=== PATIENT | female | born 1960 | race Caucasian/White ===

== ENCOUNTER 2017-07-18 11:43 | Inpatient (IN) | payer OTHER ==
[~2017-07-18] VITALS: Ht 162.6 cm; Wt 85.7 kg
[~2017-07-18 11:43] MED LIST: ABIL5TAB PO; ALBU0.086 INH; ALBU17I INH; ALBU8I INH; BENZ100 PO; CLON.5 PO; COZA50TA PO; CYMB60CA PO; FENT50DI TD; META800 PO; METF-324 PO; MYCO500T PO; NATE60TA2 PO; OMEP20TA PO; PRED20 PO; PREG100 PO; ROPI2TAB23 PO
[2017-07-18 12:00] VITALS: BP 177/83; PULSE 114; RESP 20; TEMP 98.8; O2SAT 97
[2017-07-18 12:43] LABS: AUTOMATED NEUTROPHIL # 5.1 TH/MM3 (1.8-7.7); BASOPHIL % 0.3 % (0.0-2.0); EOSINOPHIL # 0.1 TH/MM3 (0-0.4); EOSINOPHIL % 1.1 % (0.0-4.0); HEMATOCRIT 42.8 % (35.0-46.0); HEMO FLAGS DIFF FINAL; LYMPH % 16.3 % (9.0-44.0); LYMPHOCYTE # 1.2 TH/MM3 (1.0-4.8); MEAN CELL VOLUME 84.8 FL (80.0-100.0); MEAN CORPUSCULAR HEMOGLOBIN 28.8 PG (27.0-34.0); MONO % 12.4 % (0.0-8.0); NEUT % 69.9 % (16.0-70.0); PLATELET COUNT 175 TH/MM3 (150-450); RED BLOOD COUNT 5.04 MIL/MM3 (4.00-5.30); RED CELL DISTRIBUTION WIDTH 13.2 % (11.6-17.2); WHITE BLOOD COUNT 7.3 TH/MM3 (4.0-11.0)
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
[2017-07-18 13:02] LABS: ALT (GPT) 74 U/L (10-53); ANION GAP 8 MEQ/L (5-15); AST (GOT) 38 U/L (15-37); BLOOD UREA NITROGEN 5 MG/DL (7-18); CHLORIDE 104 MEQ/L (98-107); GLOMERULAR FILTRATION RATE 119 ML/MIN (>89); POTASSIUM 3.2 MEQ/L (3.5-5.1); SODIUM (NA) 139 MEQ/L (136-145)
[2017-07-18 13:04] LABS: ALKALINE PHOSPHATASE 175 U/L (45-117); TOTAL BILIRUBIN ADULT 1.2 MG/DL (0.2-1.0)
[2017-07-18 13:06] LABS: ALCOHOL LESS THAN 3 MG/DL (0-5)
[2017-07-18] MEDS ORDERED: IBUPROFEN 600 MG TAB PO ONE (13:45)
[2017-07-18] MEDS ORDERED: POTASSIUM CHLORIDE 20 MEQ CONTROLLED RELEASE TAB PO ONE (14:00)
[2017-07-18 14:03] LABS: BLOOD, URINE NEG (NEG); COMMENT (UR) CULT NOT INDICATED; CULTURE IF INDICATED CULT NOT INDICATED; GLUCOSE,URINE NEG (NEG); HYALINE CAST, URINE 1 /lpf (RARE); KETONE, URINE 40 mg/dL (NEG); MUCUS URINE FEW /lpf (OCC); NITRITE,URINE NEG (NEG); PH, URINE 6.5 (5.0-8.5); URINE COLOR YELLOW (YELLW/STRAW)
[2017-07-18 15:21] VITALS: BP 174/87
[2017-07-18 17:55] VITALS: BP 142/92; PULSE 95; RESP 18; O2SAT 95
[2017-07-18] MEDS ORDERED: OLANZapine IM 10 MG VIAL IM ONE (18:15)
[2017-07-18] MEDS ORDERED: diphenhydrAMINE HCL 50 MG/ML VIAL IM ONE (18:15)
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
[2017-07-18] MEDS ORDERED: ALUMINUM/MAGNESIUM/SIMETH 30 ML CUP PO PRN (20:00)
[2017-07-18] MEDS ORDERED: MAGNESIUM HYDROXIDE SUSP 30 ML CUP PO PRN (20:00)
[2017-07-18 21:42] VITALS: BP 153/79; PULSE 93; RESP 18; TEMP 98.1; O2SAT 98
[2017-07-19] MEDS: ACETAMINOPHEN 325 MG TAB PO PRN ×3 (02:30→14:08)
[2017-07-19 06:14] VITALS: BP 147/66; PULSE 107; RESP 20; TEMP 99.6; O2SAT 95
[2017-07-19] MEDS: GABAPENTIN 100 MG CAP PO SCH ×3 (08:51→17:59)
[2017-07-19] MEDS ORDERED: PNEUMOCOCCAL POLYVALENT INJ 25 MCG/0.5 ML SYR IM ONE (09:00)
[2017-07-19] MEDS ORDERED: INFLUENZA VIRUS VACCINE (QUADRIVALENT) 0.5 ML SYR IM ONE (09:00)
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
[2017-07-19] MEDS ORDERED: BENZTROPINE MESYLATE 2 MG/2 ML VIAL IM PRN (12:00)
[2017-07-19] MEDS ORDERED: LORazepam 2 MG/ML VIAL IM PRN (12:00)
[2017-07-19] MEDS ORDERED: BENZTROPINE MESYLATE 1 MG TAB PO PRN (12:00)
[2017-07-19] MEDS: ARIPiprazole 10 MG TAB PO SCH (13:14)
[2017-07-19] MEDS ORDERED: LYRI200C PO (14:19)
[2017-07-19] MEDS ORDERED: BENZ100 PO (14:19)
[2017-07-19] MEDS ORDERED: OMEP40CA2 PO (14:19)
[2017-07-19] MEDS ORDERED: VENTAER INH (14:19)
[2017-07-19] MEDS ORDERED: FLUT1INH INH (14:19)
[2017-07-19] MEDS ORDERED: DULO1CAP3 PO (14:19)
--- NOTE | 2017-07-19 14:19 | EKG ---
Date Performed: 07/19/2017 Time Performed: 07:46:54 PTAGE: 57 years EKG: Sinus rhythm POSSIBLE LEFT ATRIAL ENLARGEMENT MARKED LEFT AXIS DEVIATION POSSIBLE LEFT VENTRICULAR HYPERTROPHY Co mpared to the previous tracing QRS voltage slightly greater, otherwise no significant change ABNORMAL ECG PREVIOUS TRACING : 07/22/2016 18.25 DOCTOR: Johnny Hu Interpretating Date/Time 07/19/2017 14:17:33
[2017-07-19] MEDS: LORazepam 1 MG TAB PO PRN ×2 (14:42→23:33)
--- NOTE | 2017-07-19 16:03 | PD.CONS ---
HPI Service [facility] Hospitalists Consult Requested By Dr. Hansen Reason for Consult Medical management Primary Care Physician Tom Mckeon M.D. Diagnoses: History of Present Illness This is a 57-year-old female with history of COPD, type 2 diabetes, hypertension , rheumatoid arthritis, sleep apnea. Patient presented to the emergency room under voluntary for psychiatric evaluation. Per review of psychiatric notes, patient had been recently hospitalized at [facility] with diagnosis of schizoaffective disorder. Patient has prior history of PTSD and depression. Patient was admitted to the psychiatric unit. She is a poor historian, she has pressured speech and at times is difficult to focus. She has a history of diabetes and states that she takes metformin at sometimes; otherwise she controls her diabetes through diet. Does have a history of sleep apnea but doesn't use her CPAP. Laboratory workup was completed and she was noted with elevation in liver enzymes which she's had in the past. She indicates that liver disease runs in her family and she's had previous problems with her liver. She denies any illegal drug use, no alcohol abuse. RN has been trying to obtain an accurate medication list and has called the pharmacy without any success. Urine toxicology was positive for marijuana to which she admits. Laboratory workup currently spending for hepatitis panel as well as HIV. Hospitalist services are requested for medical management Review of Systems ROS Limitations: Clinical Condition, Psychotic Musculoskeletal: COMPLAINS OF: Joint pain Past Family Social History Past Medical History 1. 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 2. Depression. 3. Anxiety. 4. Suicide attempt 20 years ago. 5. Sleep apnea, uses a CPAP at night but has not used recently. 6. Irritable bowel syndrome. 7. Hypertension-not sure of meds 8. Elevated cholesterol, not taking any medications. 9. Morbid obesity. 10. GERD. 11. Previous kidney stones. 12. Diabetes-diet controlled, occ. takes Metformin 13. Fibromyalgia. 14. Chronic pain. 15. Previous admission in 2002 for septic shock and acute respiratory failure that required intubation and also had a large ischial rectal abscess. She did require a tracheostomy at that time. 16. EGD with dilatation 17. Elevated LFTs 18. OA Past Surgical History Hysterectomy Cholecystectomy EGD with dilatation Appendectomy. Tonsillectomy. Right foot fracture repair. Bilat knee replacements Right foot surgery Tracheostomy ERCP with sphincterotomy Reported Medications Reported Meds & Active Scripts Active Reported Duloxetine DR (Duloxetine HCl) 60 Mg Capdr 60 Mg PO DAILY Lyrica (Pregabalin) 200 Mg Cap 200 Mg PO BID Ventolin Hfa 18 GM Inh (Albuterol Sulfate) 90 Mcg/Act Aer 2 Puff INH Q4-6H PRN Omeprazole 40 Mg Cap 40 Mg PO DAILY Breo Ellipta Inh (Fluticasone/Vilanterol) 100-25 Mcg/Act Inh 1 Puff INH DAILY Use daily at the same time. Tessalon Perles (Benzonatate) 100 Mg Cap 200 Mg PO TID PRN Allergies: Coded Allergies: adhesive (Unverified Allergy, Severe, 07/18/17) codeine (Unverified Allergy, Severe, Hives, 07/18/17) RASH morphine (Unverified Allergy, Severe, Itching, 07/18/17) Penicillins (Verified Allergy, Unknown, 07/18/17) Active Ordered Medications Inpatient Medications Acetaminophen (Tylenol) 650 mg Q4H PRN PO Pain 1-5 or Temp >101F Last administered on 07/19/17 14:08; Start 07/18/17 at 20:00 Al Hydrox/Mg Hydrox/Simethicone (Mag-Al Plus Susp Liq) 30 ml Q6H PRN PO DYSPEPSIA; Start 07/18/17 at 20:00 Aripiprazole (Abilify) 10 mg DAILY PO Last administered on 07/19/17 13:14; Start 07/19/17 at 12:00 Benztropine Mesylate (Cogentin Inj) 1 mg Q12HR PRN IM EPS, unable to take PO; Start 07/19/17 at 12:00 Benztropine Mesylate (Cogentin) 1 mg Q12HR PRN PO EXTRA PYRAMIDAL SYMPTOMS; Start 07/19/17 at 12:00 Diphenhydramine HCl (Benadryl Inj) 50 mg ONCE ONCE IM Last administered on 18:15; Start 07/18/17 at 18:15; Stop 07/18/17 at 19:01; Status DC Gabapentin (Neurontin) 200 mg TID PO Last administered on 07/19/17 13:15; Start 07/19/17 at 09:00 Ibuprofen (Motrin) 600 mg ONCE ONCE PO Last administered on 07/18/17 14:06; Start 07/18/17 at 13:45; Stop 07/18/17 at 13:46; Status DC Influenza Virus Vaccine (Flu (Quadrivalent) Vaccine Inj) 0.5 ml ONCE ONCE IM ; Start 07/19/17 at 09:00; Stop 07/19/17 at 09:01; Status DC Lorazepam (Ativan Inj) 1 mg Q6H PRN IM ANXIETY, unable to take PO; Start at 12:00 Lorazepam (Ativan) 1 mg Q6H PRN PO ANXIETY Last administered on 07/19/17 14:42 ; Start 07/19/17 at 12:00 Magnesium Hydroxide (Milk Of Magnesia Liq) 30 ml DAILY PRN PO CONSTIPATION; Start 07/18/17 at 20:00 Olanzapine (ZyPREXA INJ) 10 mg ONCE ONCE IM Last administered on 07/18/17 18: 15; Start 07/18/17 at 18:15; Stop 07/18/17 at 19:02; Status DC Pneumococcal Polyvalent Vaccine (Pneumovax-23 Inj) 25 mcg ONCE ONCE IM ; Start 07/19/17 at 09:00; Stop 07/19/17 at 09:01; Status DC Potassium Chloride (KCl) 20 meq ONCE ONCE PO Last administered on 07/18/17 14 :06; Start 07/18/17 at 14:00; Stop 07/18/17 at 14:01; Status DC Zolpidem Tartrate (Ambien) 5 mg HS PRN PO INSOMNIA; Start 07/19/17 at 12:00 Family History Reviewed, + cancer Social History , lives alone. Has grown children. Occ. smoke marihuana, no ETOH, no smoking Physical Exam Vital Signs Vital Signs Date Time Temp Pulse Resp B/P (MAP) Pulse Ox O2 Delivery O2 Flow Rate FiO2 07/19/17 06:14 99.6 107 20 147/66 (93) 95 07/18/17 21:42 98.1 93 18 153/79 (103) 98 07/18/17 17:55 95 18 142/92 (109) 95 Room Air Physical Exam GENERAL: This is a well-nourished, well-developed patient, in no apparent distress. SKIN: No rashes, ecchymoses or lesions. Cool and dry. HEAD: Atraumatic. Normocephalic. No temporal or scalp tenderness. EYES: Pupils equal round and reactive. Extraocular motions intact. No scleral icterus. No injection or drainage. ENT: Nose without bleeding, purulent drainage or septal hematoma. Throat without erythema, tonsillar hypertrophy or exudate. Uvula midline. Airway patent. NECK: Trachea midline. No JVD or lymphadenopathy. Supple, nontender, no meningeal signs. CARDIOVASCULAR: Regular rate and rhythm without murmurs, gallops, or rubs. RESPIRATORY: Clear to auscultation. Breath sounds equal bilaterally. No wheezes , rales, or rhonchi. GASTROINTESTINAL: Abdomen soft, non-tender, nondistended. No hepato-splenomegaly , or palpable masses. No guarding. MUSCULOSKELETAL: Extremities without clubbing, cyanosis, or edema. No joint tenderness, effusion, or edema noted. No calf tenderness. Negative Homans sign bilaterally. NEUROLOGICAL: Awake, alert oriented 3. Speech is fast, at times difficult to focus on details of past medical history. No focal deficits. Laboratory Laboratory Tests Test 07/19/17 15:35 Result Diagram: 07/18/17 1230 07/18/17 1230 A/P Diagnosis: (1) Schizoaffective disorder ICD Codes: F25.9 - Schizoaffective disorder, unspecified Status: Acute (2) Cannabis abuse ICD Codes: F12.10 - Cannabis abuse, uncomplicated Status: Chronic (3) Transaminitis ICD Codes: R74.0 - Nonspecific elevation of levels of transaminase and lactic acid dehydrogenase [LDH] Status: Acute (4) Diabetes 1.5, managed as type 2 ICD Codes: E10.9 - Type 1 diabetes mellitus without complications Status: Chronic (5) HTN (hypertension) ICD Codes: I10 - Essential (primary) hypertension Status: Chronic (6) Sleep apnea ICD Codes: G47.30 - Sleep apnea, unspecified Status: Chronic (7) COPD (chronic obstructive pulmonary disease) ICD Codes: J44.9 - Chronic obstructive pulmonary disease, unspecified Status: Chronic (8) Tobacco abuse ICD Codes: Z72.0 - Tobacco use Status: Chronic Assessment and Plan Thank you for this consultation, we will assist with medical management 57-year-old female with history of schizoaffective disorder, presented to emergency room under voluntary for psychiatric evaluation. Schizoaffective disorder with psychosis History of PTSD -Continue with psychiatric care Elevated liver enzymes -DC Tylenol -Repeat LFTs in the morning -Hepatitis panel and HIV currently pending -If LFTs remain elevated, she will need evaluation by gastroenterology Type 2 diabetes, occasionally takes metformin. Mainly diet controlled -Accu-Cheks before meals and at bedtime with insulin therapy -Hemoglobin A1c in the morning Hypertension, patient is not sure about medications takes -Add clonidine when necessary COPD Tobacco abuse -Counseling completed -Nicotine patch has been ordered -Continue Breo-Ellipta Home medications reviewed, some initiated as indicated Plan of care has been discussed with the patient, attending and registered nurse. Further management of the patient will be dependent on the hospital course This patient was seen by myself and Dr. Adam, this consultation is written on his behalf Problem Qualifiers (1) Schizoaffective disorder: Qualified Codes: F25.9 - Schizoaffective disorder, unspecified (2) HTN (hypertension): Qualified Codes: I10 - Essential (primary) hypertension (3) Sleep apnea: Qualified Codes: G47.30 - Sleep apnea, unspecified (4) COPD (chronic obstructive pulmonary disease): Qualified Codes: J44.9 - Chronic obstructive pulmonary disease, unspecified Becca Morton Jul 19, 2017 16:03
[2017-07-19] MEDS ORDERED: DEXTROSE 50% IN WATER 50 ML VIAL(D50) IV PRN (16:30)
[2017-07-19] MEDS ORDERED: GLUCAGON 1 MG/ML VIAL OTHER PRN (16:30)
[2017-07-19] MEDS ORDERED: cloNIDine HCL 0.1 MG TAB PO PRN (16:30)
[2017-07-19] MEDS: INSULIN ASPART SUPPLEMENTAL SCALE SQ SCH ×2 (17:00→20:40)
[2017-07-19] MEDS: NICOTINE 7 MG/24 HR PATCH T-DERMAL SCH (18:00)
[2017-07-19 18:18] VITALS: BP 126/74; PULSE 91; RESP 18; TEMP 98.5; O2SAT 99
[2017-07-19] MEDS: ZOLPIDEM TARTRATE 5 MG TAB PO PRN ×2 (20:47→20:48)
[2017-07-19 22:06] LABS: BICARBONATE 24.1 MEQ/L (21.0-32.0); POTASSIUM 3.9 MEQ/L (3.5-5.1)
[2017-07-19 22:10] LABS: TOTAL BILIRUBIN ADULT 0.9 MG/DL (0.2-1.0)
[2017-07-19 22:12] LABS: INDIRECT BILIRUBIN 0.5 MG/DL (0.0-0.8)
[2017-07-20] MEDS: LORazepam 1 MG TAB PO PRN ×3 (04:44→21:08)
[2017-07-20 05:30] VITALS: BP 118/63; PULSE 110; RESP 16; TEMP 102.3; O2SAT 94
[2017-07-20] MEDS: INSULIN ASPART SUPPLEMENTAL SCALE SQ SCH ×4 (08:00→21:00)
[2017-07-20] MEDS: REMOVE OLD PATCH T-DERMAL SCH (08:44)
[2017-07-20] MEDS: PANTOPRAZOLE SOD 40 MG DELAYED RELEASE TAB PO SCH (08:44)
[2017-07-20] MEDS: GABAPENTIN 100 MG CAP PO SCH ×3 (08:44→17:38)
[2017-07-20] MEDS: ARIPiprazole 10 MG TAB PO SCH (08:44)
[2017-07-20] MEDS: NICOTINE 7 MG/24 HR PATCH T-DERMAL SCH (08:44)
[2017-07-20] MEDS: FLUTICASONE 100 MCG/VILANTEROL 25 MCG INHALER INH SCH ×2 (09:00→13:05)
--- NOTE | 2017-07-20 10:00 | RADRPT ---
EXAM DATE/TIME: 07/20/2017 09:40 [place] COMPARISON: No previous studies available for comparison. INDICATIONS : Altered mental status. RADIATION DOSE: 56.35 CTDIvol (mGy) MEDICAL HISTORY : Lupus. SURGICAL HISTORY : Hysterectomy. ENCOUNTER: Initial ACUITY: 1 day PAIN SCALE: 0/10 LOCATION: cranial TECHNIQUE: Multiple contiguous axial images were obtained of the head. Using automated exposure control and adj ustment of the mA and/or kV according to patient size, radiation dose was kept as low as reasonably a chievable to obtain optimal diagnostic quality images. DICOM format image data is available electro nically for review and comparison. FINDINGS: CEREBRUM: The ventricles are normal for age. No evidence of midline shift, mass lesion, hemorrhage or acute in farction. No extra-axial fluid collections are seen. POSTERIOR FOSSA: The cerebellum and brainstem are intact. The 4th ventricle is midline. The cerebellopontine angle i s unremarkable. EXTRACRANIAL: The visualized portion of the orbits is intact. SKULL: The calvaria is intact. No evidence of skull fracture. CONCLUSION: 1. No acute intracranial abnormality. Manoj Armas MD on July 20, 2017 at 9:56 Board Certified Radiologist. This report was verified electronically.
[2017-07-20 13:15] LABS: ALT (GPT) 42 U/L (10-53); AST (GOT) 28 U/L (15-37)
[2017-07-20 13:17] LABS: ALKALINE PHOSPHATASE 176 U/L (45-117); INDIRECT BILIRUBIN 0.4 MG/DL (0.0-0.8); TOTAL BILIRUBIN ADULT 0.9 MG/DL (0.2-1.0)
[2017-07-20 13:40] LABS: HEMOGLOBIN A1a 1.1 %; HEMOGLOBIN A1b 0.7 %; HEMOGLOBIN Ao 85.4 %; HEMOGLOBIN F 1.2 %; HEMOGLOBIN LA1C 2.1 %; HEMOGLOBIN P3 3.5 %
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
[2017-07-20] MEDS ORDERED: ONDANSETRON ODT 4 MG TAB PO PRN (15:45)
[2017-07-20 16:15] VITALS: BP_SYST 69; PULSE 105; RESP 17; TEMP 100.2; O2SAT 96
--- NOTE | 2017-07-20 16:50 | HHI.PR ---
Subjective Remarks Patient examined in the presence of RN Complaining of rash to perineal area No urinary symptoms Had a fever in the morning on a 102.3, slightly tachycardic. Has dry cough No chest pain No shortness of breath Complains of generalized joint pain, history of fibromyalgia Objective Objective Results - Vital Signs Date Time Temp Pulse Resp B/P (MAP) Pulse Ox O2 Delivery O2 Flow Rate FiO2 07/20/17 16:15 100.2 105 17 69/ 96 07/20/17 05:30 102.3 110 16 118/63 (81) 94 07/19/17 18:18 98.5 91 18 126/74 (91) 99 Result Diagram: 07/18/17 1230 07/19/17 1535 Other Results Laboratory Tests Test 07/20/17 12:21 Hemoglobin A1c 5.5 Total Bilirubin 0.9 Direct Bilirubin 0.5 Indirect Bilirubin 0.4 Aspartate Amino Transf (AST/SGOT) 28 Alanine Aminotransferase (ALT/SGPT) 42 Alkaline Phosphatase 176 Total Protein 6.9 Albumin 3.0 ROS General: Other (fever) Neuro/MS: Other (joint pain) Psych: Anxiety Skin: Rash (perineal rash) Physical Exam Physical Exam GENERAL: This is a well-nourished, well-developed patient, in no apparent distress. SKIN: No rashes, ecchymoses or lesions. Cool and dry. HEAD: Atraumatic. Normocephalic. No temporal or scalp tenderness. EYES: Pupils equal round and reactive. Extraocular motions intact. No scleral icterus. No injection or drainage. ENT: Nose without bleeding, purulent drainage or septal hematoma. Throat without erythema, tonsillar hypertrophy or exudate. Uvula midline. Airway patent. NECK: Trachea midline. No JVD or lymphadenopathy. Supple, nontender, no meningeal signs. CARDIOVASCULAR: Regular rate and rhythm without murmurs, gallops, or rubs. RESPIRATORY: Clear to auscultation. Breath sounds equal bilaterally. No wheezes , rales, or rhonchi. GASTROINTESTINAL: Abdomen soft, non-tender, nondistended. No hepato-splenomegaly , or palpable masses. No guarding. : Erythematous fungal rash noted to perineum, no vaginal discharge MUSCULOSKELETAL: Extremities without clubbing, cyanosis, or edema. No joint tenderness, effusion, or edema noted. No calf tenderness. Negative Homans sign bilaterally. NEUROLOGICAL: Awake, alert oriented 3. Speech is fast, at times difficult to focus on details of past medical history. No focal deficits. Urinary Catheter: No Vascular Central Line Catheter: No A/P Diagnosis: (1) Schizoaffective disorder ICD Codes: F25.9 - Schizoaffective disorder, unspecified Status: Acute (2) Cannabis abuse ICD Codes: F12.10 - Cannabis abuse, uncomplicated Status: Chronic (3) Transaminitis ICD Codes: R74.0 - Nonspecific elevation of levels of transaminase and lactic acid dehydrogenase [LDH] Status: Acute (4) Diabetes 1.5, managed as type 2 ICD Codes: E10.9 - Type 1 diabetes mellitus without complications Status: Chronic (5) HTN (hypertension) ICD Codes: I10 - Essential (primary) hypertension Status: Chronic (6) Sleep apnea ICD Codes: G47.30 - Sleep apnea, unspecified Status: Chronic (7) COPD (chronic obstructive pulmonary disease) ICD Codes: J44.9 - Chronic obstructive pulmonary disease, unspecified Status: Chronic (8) Tobacco abuse ICD Codes: Z72.0 - Tobacco use Status: Chronic (9) Rash ICD Codes: R21 - Rash and other nonspecific skin eruption Status: Acute (10) Bipolar affective, manic, severe w/ psych ICD Codes: F31.2 - Bipolar disorder, current episode manic severe with psychotic features Status: Acute Assessment and Plan 57-year-old female with history of schizoaffective disorder, presented to emergency room under voluntary for psychiatric evaluation. Schizoaffective disorder with psychosis History of PTSD -Continue with psychiatric care Elevated liver enzymes -LFTs back to normal -Negative HIV test -Resume Tylenol Type 2 diabetes, occasionally takes metformin. Mainly diet controlled -Accu-Cheks before meals and at bedtime with insulin therapy -Hemoglobin A1c 5.5 -Blood glucose well controlled, change Accu-Cheks to twice a day Hypertension, patient is not sure about medications takes -Continue clonidine when necessary COPD Tobacco abuse -Counseling completed -Nicotine patch has been ordered -Continue Breo-Ellipta Febrile, tachycardia, etiology unclear. Complains of a dry cough -If fever recurs, we'll check blood cultures, chest x-ray and repeat UA Perineal rash -Nystatin ointment continue to monitor Discussed with RN Discussed with patient Discussed with Dr. Coppola This patient was seen by myself and Dr. Coppola, this note is written on his behalf Problem Qualifiers (1) Schizoaffective disorder: Qualified Codes: F25.9 - Schizoaffective disorder, unspecified (2) HTN (hypertension): Qualified Codes: I10 - Essential (primary) hypertension (3) Sleep apnea: Qualified Codes: G47.30 - Sleep apnea, unspecified (4) COPD (chronic obstructive pulmonary disease): Qualified Codes: J44.9 - Chronic obstructive pulmonary disease, unspecified Becca Morton Jul 20, 2017 16:50
[2017-07-20] MEDS: IBUPROFEN 600 MG TAB PO PRN ×2 (18:28→20:57)
--- NOTE | 2017-07-20 20:23 | RADRPT ---
EXAM DATE/TIME: 07/20/2017 20:05 [facility] COMPARISON: CHEST SINGLE AP, July 22, 2016, 18:47. INDICATIONS : Cough. MEDICAL HISTORY : Lupus. SURGICAL HISTORY : Hysterectomy. ENCOUNTER: Initial ACUITY: 1 week PAIN SCORE: 3/10 LOCATION: Bilateral upper chest FINDINGS: A single view of the chest demonstrates the lungs to be symmetrically aerated without evidence of mas s, infiltrate or effusion. The cardiomediastinal contours are unremarkable. Osseous structures are intact. Subcentimeter benign granuloma again seen left lung base. CONCLUSION: No evidence of acute cardiopulmonary disease. Miguel Clayton MD on July 20, 2017 at 20:21 Board Certified Radiologist. This report was verified electronically.
[2017-07-20] MEDS: NYSTATIN 100,000 UNIT/GM CREAM 15 GM TOPICAL SCH (21:00)
[2017-07-20] MEDS: ZOLPIDEM TARTRATE 5 MG TAB PO PRN (21:08)
[2017-07-21 05:36] VITALS: BP 133/78; PULSE 95; RESP 18; TEMP 97.8; O2SAT 99
[2017-07-21] MEDS: INSULIN ASPART SUPPLEMENTAL SCALE SQ SCH ×4 (08:29→21:00)
[2017-07-21] MEDS: ARIPiprazole 15 MG TAB PO SCH (09:00)
[2017-07-21] MEDS: REMOVE OLD PATCH T-DERMAL SCH (09:00)
[2017-07-21] MEDS: NYSTATIN 100,000 UNIT/GM CREAM 15 GM TOPICAL SCH ×2 (09:00→22:00)
[2017-07-21] MEDS ORDERED: ARIPiprazole 10 MG TAB PO SCH (09:00)
[2017-07-21] MEDS: GABAPENTIN 100 MG CAP PO SCH ×3 (09:21→17:53)
[2017-07-21] MEDS: PANTOPRAZOLE SOD 40 MG DELAYED RELEASE TAB PO SCH (09:21)
[2017-07-21] MEDS: NICOTINE 7 MG/24 HR PATCH T-DERMAL SCH (09:21)
[2017-07-21] MEDS: IBUPROFEN 600 MG TAB PO PRN (09:24)
[2017-07-21] MEDS: LORazepam 1 MG TAB PO PRN ×2 (10:40→16:43)
[2017-07-21 14:20] LABS: FREE T4 1.62 NG/DL (0.76-1.46)
--- NOTE | 2017-07-21 15:29 | HHI.PR ---
Subjective Remarks Patient examined in the presence of RN Everything is wrong as the patient No urinary symptoms No nausea vomiting or diarrhea. Has dry cough No chest pain No shortness of breath as per patient she has history of throat cancer as well as thyroid cancer. It is cured by natural medication. Complains of generalized joint pain, history of fibromyalgia No fever today Objective Objective Results - Vital Signs Date Time Temp Pulse Resp B/P (MAP) Pulse Ox O2 Delivery O2 Flow Rate FiO2 07/21/17 05:36 97.8 95 18 133/78 (96) 99 07/20/17 16:15 100.2 105 17 69/ 96 Result Diagram: 07/18/17 1230 07/19/17 1535 Other Results Laboratory Tests Test 07/21/17 13:11 Free Thyroxine 1.62 Thyroid Stimulating Hormone 3rd Gen 0.223 Date/Time Source Procedure Growth Status 07/20/17 23:36 Blood Peripheral Aerobic Blood Culture - Preliminary NO GROWTH IN 1 DAY Resulted 07/20/17 23:36 Blood Peripheral Anaerobic Blood Culture - Preliminary NO GROWTH IN 1 DAY Resulted Physical Exam Physical Exam GENERAL: This is a well-nourished, well-developed patient, in no apparent distress. SKIN: No rashes, ecchymoses or lesions. Cool and dry. HEAD: Atraumatic. Normocephalic. No temporal or scalp tenderness. EYES: Pupils equal round and reactive. Extraocular motions intact. No scleral icterus. No injection or drainage. ENT: Nose without bleeding, purulent drainage or septal hematoma. Throat without erythema, tonsillar hypertrophy or exudate. Uvula midline. Airway patent. NECK: Trachea midline. No JVD or lymphadenopathy. Supple, nontender, no meningeal signs. CARDIOVASCULAR: Regular rate and rhythm without murmurs, gallops, or rubs. RESPIRATORY: Clear to auscultation. Breath sounds equal bilaterally. No wheezes , rales, or rhonchi. GASTROINTESTINAL: Abdomen soft, non-tender, nondistended. No hepato-splenomegaly , or palpable masses. No guarding. MUSCULOSKELETAL: Extremities without clubbing, cyanosis, or edema. No joint tenderness, effusion, or edema noted. No calf tenderness. Negative Homans sign bilaterally. NEUROLOGICAL: Awake, alert oriented 3. Speech is fast, at times difficult to focus on details of past medical history, has tangential thoughts. No focal deficits. Urinary Catheter: No Vascular Central Line Catheter: No A/P Assessment and Plan (1) Schizoaffective disorder ICD Codes: F25.9 - Schizoaffective disorder, unspecified Status: Acute (2) Cannabis abuse ICD Codes: F12.10 - Cannabis abuse, uncomplicated Status: Chronic (3) Transaminitis ICD Codes: R74.0 - Nonspecific elevation of levels of transaminase and lactic acid dehydrogenase [LDH] Status: Acute (4) Diabetes 1.5, managed as type 2 ICD Codes: E10.9 - Type 1 diabetes mellitus without complications Status: Chronic (5) HTN (hypertension) ICD Codes: I10 - Essential (primary) hypertension Status: Chronic (6) Sleep apnea ICD Codes: G47.30 - Sleep apnea, unspecified Status: Chronic (7) COPD (chronic obstructive pulmonary disease) ICD Codes: J44.9 - Chronic obstructive pulmonary disease, unspecified Status: Chronic (8) Tobacco abuse ICD Codes: Z72.0 - Tobacco use Status: Chronic (9) Rash ICD Codes: R21 - Rash and other nonspecific skin eruption Status: Acute (10) Bipolar affective, manic, severe w/ psych ICD Codes: F31.2 - Bipolar disorder, current episode manic severe with psychotic features Status: Acute Plan 57-year-old female with history of schizoaffective disorder, presented to emergency room under voluntary for psychiatric evaluation. Schizoaffective disorder with psychosis History of PTSD -Continue with psychiatric care Elevated liver enzymes -LFTs back to normal -Negative HIV test -Resume Tylenol Increase free T4 and decreased TSH -We will get free T4 level. -Start low-dose beta john Type 2 diabetes, occasionally takes metformin. Mainly diet controlled -Accu-Cheks before meals and at bedtime with insulin therapy -Hemoglobin A1c 5.5 -Blood glucose well controlled, change Accu-Cheks to twice a day Hypertension, patient is not sure about medications takes -Continue clonidine when necessary COPD Tobacco abuse -Counseling completed -Nicotine patch has been ordered -Continue Breo-Ellipta Febrile, tachycardia, etiology unclear. Complains of a dry cough. No more cough or fever -If fever recurs, we'll check blood cultures, chest x-ray and repeat UA Perineal rash -Nystatin ointment continue to monitor Discussed with RN Discussed with patient Lisa Adam MD Jul 21, 2017 15:29
[2017-07-21 17:42] VITALS: BP 141/64; PULSE 107; RESP 18; TEMP 100.5; O2SAT 98
[2017-07-21] MEDS: ACETAMINOPHEN 325 MG TAB PO PRN (17:54)
--- NOTE | 2017-07-21 19:20 | HHI.PYPN ---
Subjective Remarks Patient was seen and case discussed with nursing. Patient is followed by the medical team and lab work was ordered today. Today patient remains focused on somatic complaints. She has poor insight concerning her history and her various bizarre delusions. Delusions include being a witness for the [employer], knowing the locations of cocaine safehouses, and islam preoccupation. Blood pressure and heart rate is within normal limits, there is no EPS or stiffness or acute change in mental status Objective Alert: Yes [place]: Person, Place (at least) Mood: Calm Affect: Restricted Memory Intact: Comment (not formally assessed) Hallucinations: Other (no AVH) Delusions: Yes Delusion Type: Paranoid (that she knows the safehouses and is working with [employer]) , Other (regarding radiation, with some islam overtones) Suicidal: Ideation (no SI) Homicidal: Ideation (no HI) Insight/Judgment Poor Labs Test 07/21/17 13:11 Free Thyroxine 1.62 NG/DL Thyroid Stimulating Hormone 3rd Gen 0.223 uIU/ML Date/Time Source Procedure Growth Status 07/20/17 23:36 Blood Peripheral Aerobic Blood Culture - Preliminary NO GROWTH IN 1 DAY Resulted 07/20/17 23:36 Blood Peripheral Anaerobic Blood Culture - Preliminary NO GROWTH IN 1 DAY Resulted Vitals/IOs Vital Signs Date Time Temp Pulse Resp B/P (MAP) Pulse Ox O2 Delivery O2 Flow Rate FiO2 07/21/17 17:42 100.5 107 18 141/64 (89) 98 07/18/17 17:55 Room Air Assessment & Plan Problem List: (1) Bipolar affective, manic, severe w/ psych ICD Codes: F31.2 - Bipolar disorder, current episode manic severe with psychotic features Status: Acute Assessment & Plan Add CK to labwork Justification for Cont. Inpt. Patient would decompensate in a less restrictive setting Request HC Surrog/Guard Advoc?: No Corona Whatley DO Jul 21, 2017 19:20
[2017-07-21] MEDS: METOPROLOL TARTRATE 25 MG TAB PO SCH (20:15)
[2017-07-22 05:28] VITALS: BP 122/71; PULSE 88; RESP 16; TEMP 99.1; O2SAT 98
[2017-07-22] MEDS: ACETAMINOPHEN 325 MG TAB PO PRN ×2 (06:44→23:15)
[2017-07-22] MEDS: LORazepam 1 MG TAB PO PRN ×3 (06:49→22:04)
[2017-07-22 07:57] LABS: MEAN CELL VOLUME 85.1 FL (80.0-100.0); MEAN CORPUSCULAR HEMOGLOBIN 29.1 PG (27.0-34.0); MEAN CORPUSCULAR HGB CONC 34.2 % (32.0-36.0); PLATELET COUNT 262 TH/MM3 (150-450); RED BLOOD COUNT 4.35 MIL/MM3 (4.00-5.30); RED CELL DISTRIBUTION WIDTH 13.5 % (11.6-17.2); REVIEW FLAG FINAL; WHITE BLOOD COUNT 8.7 TH/MM3 (4.0-11.0)
[2017-07-22] MEDS: INSULIN ASPART SUPPLEMENTAL SCALE SQ SCH ×4 (08:00→20:40)
[2017-07-22 08:17] LABS: BICARBONATE 28.2 MEQ/L (21.0-32.0); POTASSIUM 3.8 MEQ/L (3.5-5.1)
[2017-07-22 08:27] LABS: FREE T3 2.53 PG/ML (2.18-3.98)
[2017-07-22] MEDS: NICOTINE 7 MG/24 HR PATCH T-DERMAL SCH ×2 (09:00→11:00)
[2017-07-22] MEDS: REMOVE OLD PATCH T-DERMAL SCH (09:00)
[2017-07-22] MEDS: ARIPiprazole 15 MG TAB PO SCH (09:43)
[2017-07-22] MEDS: METOPROLOL TARTRATE 25 MG TAB PO SCH ×2 (09:44→20:37)
[2017-07-22] MEDS: FLUTICASONE 100 MCG/VILANTEROL 25 MCG INHALER INH SCH (09:44)
[2017-07-22] MEDS: PANTOPRAZOLE SOD 40 MG DELAYED RELEASE TAB PO SCH (09:45)
[2017-07-22] MEDS: GABAPENTIN 100 MG CAP PO SCH ×3 (09:45→18:26)
[2017-07-22] MEDS: NYSTATIN 100,000 UNIT/GM CREAM 15 GM TOPICAL SCH ×2 (09:47→21:00)
[2017-07-22] MEDS: IBUPROFEN 600 MG TAB PO PRN ×2 (12:35→20:40)
[2017-07-22 14:55] VITALS: BP 138/82; PULSE 92; RESP 18; TEMP 98.5; O2SAT 98
[2017-07-22 16:00] VITALS: BP 149/89; PULSE 88; RESP 18; TEMP 98.9
--- NOTE | 2017-07-22 17:49 | HHI.PYPN ---
Subjective Remarks Patient was seen and case discussed with nursing. Per nursing patient had a fall where she slipped on her slipper. She caught herself on her wrists and her knees. Patient is complaining of mild knee and wrist pain and is asking for x-rays. She has a documented history of somatic preoccupation. Patient remains very bizarre and psychotic. Today patient says her youngest daughter works at night to gather souls to control her granddaughter's. She also says she was supposed to be granted an honorary degree from [employer] to help educate her son. Mood is bright and cheerful. She denies suicidal or homicidal ideation intent or plan. Compliant with medications and tolerating them well Objective Alert: Yes [place]: Person, Place (at least) Mood: Calm Affect: Other (elevated) Memory Intact: Comment (not formally assessed) Hallucinations: Other (denies) Delusions: Yes Delusion Type: Grandiose (that she has an honorary degree from [employer]), Paranoid ( that her daughter collects souls) Suicidal: Ideation (no SI) Homicidal: Ideation (no HI) Insight/Judgment Poor Labs Test 07/22/17 07:26 White Blood Count 8.7 TH/MM3 Red Blood Count 4.35 MIL/MM3 Hemoglobin 12.7 GM/DL Hematocrit 37.0 % Mean Corpuscular Volume 85.1 FL Mean Corpuscular Hemoglobin 29.1 PG Mean Corpuscular Hemoglobin Concent 34.2 % Red Cell Distribution Width 13.5 % Platelet Count 262 TH/MM3 Mean Platelet Volume 7.3 FL Blood Urea Nitrogen 9 MG/DL Creatinine 0.52 MG/DL Random Glucose 95 MG/DL Calcium Level 9.1 MG/DL Sodium Level 134 MEQ/L Potassium Level 3.8 MEQ/L Chloride Level 99 MEQ/L Carbon Dioxide Level 28.2 MEQ/L Anion Gap 7 MEQ/L Estimat Glomerular Filtration Rate 122 ML/MIN Free Triiodothyronine (T3) pg/dL 2.53 PG/ML Date/Time Source Procedure Growth Status 07/20/17 23:36 Blood Peripheral Aerobic Blood Culture - Preliminary NO GROWTH IN 2 DAYS Resulted 07/20/17 23:36 Blood Peripheral Anaerobic Blood Culture - Preliminary NO GROWTH IN 2 DAYS Resulted Vitals/IOs Vital Signs Date Time Temp Pulse Resp B/P (MAP) Pulse Ox O2 Delivery O2 Flow Rate FiO2 07/22/17 16:00 98.9 88 18 149/89 (109) 07/22/17 14:55 98 07/18/17 17:55 Room Air Assessment & Plan Problem List: (1) Bipolar affective, manic, severe w/ psych ICD Codes: F31.2 - Bipolar disorder, current episode manic severe with psychotic features Status: Acute Assessment & Plan X-rays of knee and wrist ordered as a precaution. Increase Abilify to 25 mg daily. Give 10 mg dose today in addition to the 15 she already got Justification for Cont. Inpt. Patient will decompensate in a less restrictive setting Request HC Surrog/Guard Advoc?: No Corona Whatley DO Jul 22, 2017 17:49
[2017-07-22] MEDS ORDERED: ARIPiprazole 10 MG TAB PO ONE (19:00)
[2017-07-22 19:30] VITALS: BP 141/76; PULSE 95; RESP 16; TEMP 99; O2SAT 95
--- NOTE | 2017-07-22 21:22 | RADRPT ---
EXAM DATE/TIME: 07/22/2017 21:02 [facility] COMPARISON: No previous studies available for comparison. INDICATIONS : Right wrist pain, fell MEDICAL HISTORY : Lupus. SURGICAL HISTORY : Hysterectomy. Bilateral knee replacements ENCOUNTER: Initial ACUITY: 1 day PAIN SCORE: 6/10 LOCATION: Right Wrist FINDINGS: Three view examination of the right wrist demonstrates no soft tissue swelling, dislocation, or fract ure. The carpal bones are in normal alignment. The joint spaces are maintained. Bony mineralizatio n is normal. CONCLUSION: No acute fracture or subluxation of the right wrist. Miguel Clayton MD on July 22, 2017 at 21:21 Board Certified Radiologist. This report was verified electronically.
--- NOTE | 2017-07-22 21:23 | RADRPT ---
EXAM DATE/TIME: 07/22/2017 21:03 [facility] COMPARISON: No previous studies available for comparison. INDICATIONS : Left wrist pain, fell MEDICAL HISTORY : Lupus. SURGICAL HISTORY : Hysterectomy. Bilateral knee replacements ENCOUNTER: Initial ACUITY: 1 day PAIN SCORE: 10/10 LOCATION: Left Wrist FINDINGS: Three view examination of the left wrist demonstrates no soft tissue swelling, dislocation, or fractu re. The carpal bones are in normal alignment. The joint spaces are maintained. Bony mineralization is normal. CONCLUSION: Intact left wrist. Miguel Clayton MD on July 22, 2017 at 21:21 Board Certified Radiologist. This report was verified electronically.
--- NOTE | 2017-07-22 21:29 | RADRPT ---
EXAM DATE/TIME: 07/22/2017 21:06 [facility] COMPARISON: No previous studies available for comparison. INDICATIONS : Left knee pain, fell MEDICAL HISTORY : Lupus. SURGICAL HISTORY : Hysterectomy. Bilateral knee replacements ENCOUNTER: Initial ACUITY: 1 day PAIN SCORE: 2/10 LOCATION: Left Knee FINDINGS: No fracture or subluxation seen of the left knee. No joint effusion demonstrated. Mild prepatellar so ft tissue swelling. No radiopaque foreign body. Patient has a left total knee arthroplasty that appears intact and normally aligned. CONCLUSION: Mild prepatellar soft tissue swelling. No fracture, subluxation or significant joint effusion of the left knee. Previous arthroplasty. Miguel Clayton MD on July 22, 2017 at 21:27 Board Certified Radiologist. This report was verified electronically.
--- NOTE | 2017-07-22 21:30 | RADRPT ---
EXAM DATE/TIME: 07/22/2017 21:07 [facility] COMPARISON: No previous studies available for comparison. INDICATIONS : Right knee pain, fell MEDICAL HISTORY : Lupus. SURGICAL HISTORY : Hysterectomy. Bilateral knee replacements ENCOUNTER: Initial ACUITY: 1 day PAIN SCORE: 2/10 LOCATION: Right Knee FINDINGS: There is mild prepatellar soft tissue swelling. No radiopaque foreign body. No joint effusion. No fracture or subluxation of the right knee. There is a right total knee arthroplasty that appears i ntact and normally aligned. CONCLUSION: Intact right knee. Mild prepatellar soft tissue swelling. No joint effusion. Miguel Clayton MD on July 22, 2017 at 21:28 Board Certified Radiologist. This report was verified electronically.
[2017-07-22 23:29] LABS: BLOOD, URINE NEG (NEG); GLUCOSE,URINE NEG (NEG); KETONE, URINE NEG (NEG); NITRITE,URINE NEG (NEG); SQUAMOUS EPITHELIAL CELL URINE 1 /hpf (0-5); URINE COLOR YELLOW (YELLW/STRAW)
[2017-07-22 23:35] LABS: COMMENT (UR) CULT NOT INDICATED; CULTURE IF INDICATED CULT NOT INDICATED
[2017-07-22 23:52] VITALS: BP 114/66; PULSE 80; RESP 18; TEMP 98; O2SAT 96
[2017-07-23] MEDS: IBUPROFEN 600 MG TAB PO PRN ×3 (05:31→16:34)
[2017-07-23 05:56] VITALS: BP 135/78; PULSE 90; RESP 18; TEMP 97.3; O2SAT 98
[2017-07-23] MEDS: INSULIN ASPART SUPPLEMENTAL SCALE SQ SCH ×4 (08:00→21:00)
[2017-07-23] MEDS: METOPROLOL TARTRATE 25 MG TAB PO SCH ×2 (08:32→21:00)
[2017-07-23] MEDS: NICOTINE 7 MG/24 HR PATCH T-DERMAL SCH (08:32)
[2017-07-23] MEDS: GABAPENTIN 100 MG CAP PO SCH ×3 (08:33→17:34)
[2017-07-23] MEDS: PANTOPRAZOLE SOD 40 MG DELAYED RELEASE TAB PO SCH (08:33)
[2017-07-23] MEDS: REMOVE OLD PATCH T-DERMAL SCH (08:34)
[2017-07-23] MEDS: FLUTICASONE 100 MCG/VILANTEROL 25 MCG INHALER INH SCH (08:34)
[2017-07-23] MEDS: NYSTATIN 100,000 UNIT/GM CREAM 15 GM TOPICAL SCH ×2 (08:34→21:00)
--- NOTE | 2017-07-23 08:36 | HHI.PYPN ---
Subjective Remarks Patient seen and examined with nurse. Chart reviewed. Case discussed with nursing staff who reports patient remains delusional and grandiose. On my exam , patient remains delusional. She insists that her is causing her mental illness, "he gaslights me." She is also perpetuating conflicts with other patient's on the unit, although she is not the instigator. Remains somatically preoccupied Somewhat med seeking for Ativan. Denies side effects from medications. Review of Systems ROS Limitations: Psychotic, Poor Historian Except as stated in HPI: all other systems reviewed are Neg Objective Alert: Yes [place]: Person, Place (at least) Mood: Anxious, Oppositional Affect: Labile Memory Intact: Comment (not formally assessed) Hallucinations: Other (No AVH) Delusions: Yes Delusion Type: Grandiose, Paranoid Suicidal: Ideation (No SI) Homicidal: Ideation (No HI) Insight/Judgment Poor Remarks Left lip tic noted, patient reports that this is chronic, intermittent. No other motoric abnormalities noted. Thought process with loosening of associations. Grooming and hygiene fair. Speech rambling. Labs Test 07/22/17 23:10 Urine Color YELLOW Urine Turbidity CLEAR Urine pH 6.0 Urine Specific [place] 1.008 Urine Protein NEG mg/dL Urine Glucose (UA) NEG mg/dL Urine Ketones NEG mg/dL Urine Occult Blood NEG Urine Nitrite NEG Urine Bilirubin NEG Urine Urobilinogen LESS THAN 2.0 MG/DL Urine Leukocyte Esterase NEG Urine RBC LESS THAN 1 /hpf Urine WBC 1 /hpf Urine Squamous Epithelial Cells 1 /hpf Microscopic Urinalysis Comment CULT NOT INDICATED Date/Time Source Procedure Growth Status 07/20/17 23:36 Blood Peripheral Aerobic Blood Culture - Preliminary NO GROWTH IN 2 DAYS Resulted 07/20/17 23:36 Blood Peripheral Anaerobic Blood Culture - Preliminary NO GROWTH IN 2 DAYS Resulted Labs reviewed. Imaging impressions from patient's fall reviewed, negative for fracture. Vitals/IOs Vital Signs Date Time Temp Pulse Resp B/P (MAP) Pulse Ox O2 Delivery O2 Flow Rate FiO2 07/23/17 05:56 97.3 90 18 135/78 (97) 98 Assessment & Plan Problem List: (1) Bipolar affective, manic, severe w/ psych ICD Codes: F31.2 - Bipolar disorder, current episode manic severe with psychotic features Status: Acute Assessment & Plan Titrate Abilify to 30mg daily to target ongoing mood and psychotic symptoms. Now that AST/ALT have normalized and plt ok, also start Depakote ER 1g HS for mood stabilization; I have kept the dose lower than I otherwise might in light of recent transaminitis. Plan to check a Depakote level and LFTs after the appropriate interval. Continue to monitor on the high acuity unit. Continue other medications and care as ordered. Justification for Cont. Inpt. Med changes. Impairment in reality construction. High risk for decompensation in less restrictive environment. Discharge Planning Pending psychiatric stabilization Request HC Surrog/Guard Advoc?: No Tom Hansen MD Jul 23, 2017 08:36
[2017-07-23] MEDS ORDERED: ARIPiprazole 15 MG TAB PO SCH (09:00)
[2017-07-23] MEDS: LORazepam 1 MG TAB PO PRN (09:16)
[2017-07-23] MEDS: DIVALPROEX SODIUM E.R. 500 MG TAB PO SCH (21:00)
[2017-07-24] MEDS: LORazepam 1 MG TAB PO PRN ×2 (04:27→22:04)
[2017-07-24] MEDS: INSULIN ASPART SUPPLEMENTAL SCALE SQ SCH ×4 (07:54→21:00)
[2017-07-24] MEDS: FLUTICASONE 100 MCG/VILANTEROL 25 MCG INHALER INH SCH (08:33)
[2017-07-24] MEDS: ARIPiprazole 30 MG TAB PO SCH (08:34)
[2017-07-24] MEDS: PANTOPRAZOLE SOD 40 MG DELAYED RELEASE TAB PO SCH (08:34)
[2017-07-24] MEDS: GABAPENTIN 100 MG CAP PO SCH ×3 (08:34→18:00)
[2017-07-24] MEDS: NICOTINE 7 MG/24 HR PATCH T-DERMAL SCH (08:35)
[2017-07-24] MEDS: METOPROLOL TARTRATE 25 MG TAB PO SCH ×2 (08:35→22:04)
[2017-07-24] MEDS: REMOVE OLD PATCH T-DERMAL SCH (08:37)
[2017-07-24] MEDS: NYSTATIN 100,000 UNIT/GM CREAM 15 GM TOPICAL SCH ×2 (08:38→21:00)
[2017-07-24] MEDS: IBUPROFEN 600 MG TAB PO PRN (09:39)
--- NOTE | 2017-07-24 12:10 | PD.TTN ---
Patient Problems 1. Discharge planning 2. Medication compliance 3. Knowledge deficit 4. Lack of coping skills Progress Toward Goals Provider Present: Dr. Cris Hansen Provider Input: Dr. Hogan held his treatment team meeting to discuss patient's medication, discharge, and treatment plan. Patient was given a new medication. Doctor is wanting patient to stay at least to Sunday, however patient has signed a ROR. It was suggested to call . Nurse(s) Input: Patient's nurse Mala reports patient is intrusive but has been taking her medicatons. Patient is requesting to go home. Treatment team discussed her staying until the end of the week. Patient is still having delusions about radiation to make it ok to eat fish from the ocean. Psychiatric Counselors Present: No Kwong LCSW, Princess Acosta [facility] Psych Therapist Input: Patient presents calm, childlike, intrusive, affect labile. Patient presents with [place], bizarre delusional content. Patient is medication compliant, eating well. Patient had difficulty last night reporting she had a nightmare and woke up with a migrain headach. Patient's speech is clear, disorganized with pressure. Patient is exit seeking and signed a ROR against Dr. Hansen's advise. Patient denied suicidal and homicidal ideation. Group Spec/RT/OT/SPENCER Present: TJ Feliciano Group Spec/RT/OT/SPENCER Input: Patient attends some groups. Patient grandiose, hyperverbal and entitled Princess Acosta [facility] Jul 24, 2017 12:10
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
[2017-07-24] MEDS: ACETAMINOPHEN 325 MG TAB PO PRN (16:25)
[2017-07-24] MEDS: DIVALPROEX SODIUM E.R. 500 MG TAB PO SCH (22:04)
[2017-07-25] MEDS: LORazepam 1 MG TAB PO PRN ×2 (04:11→17:20)
[2017-07-25 06:09] VITALS: BP 123/77; PULSE 115; RESP 18; TEMP 97.9; O2SAT 96
[2017-07-25] MEDS: INSULIN ASPART SUPPLEMENTAL SCALE SQ SCH ×4 (08:00→21:00)
[2017-07-25] MEDS: ARIPiprazole 30 MG TAB PO SCH (08:55)
[2017-07-25] MEDS: GABAPENTIN 100 MG CAP PO SCH ×3 (08:55→17:20)
[2017-07-25] MEDS: PANTOPRAZOLE SOD 40 MG DELAYED RELEASE TAB PO SCH (08:55)
[2017-07-25] MEDS: METOPROLOL TARTRATE 25 MG TAB PO SCH ×2 (08:56→21:50)
[2017-07-25] MEDS: NICOTINE 7 MG/24 HR PATCH T-DERMAL SCH (09:00)
[2017-07-25] MEDS: REMOVE OLD PATCH T-DERMAL SCH (09:00)
[2017-07-25] MEDS: FLUTICASONE 100 MCG/VILANTEROL 25 MCG INHALER INH SCH (09:00)
[2017-07-25] MEDS: NYSTATIN 100,000 UNIT/GM CREAM 15 GM TOPICAL SCH ×2 (09:00→21:48)
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
[2017-07-25 18:38] VITALS: BP 103/58; PULSE 107; RESP 18; TEMP 99.2; O2SAT 97
[2017-07-25] MEDS: DIVALPROEX SODIUM E.R. 250 MG TAB PO SCH (21:49)
[2017-07-25] MEDS: IBUPROFEN 600 MG TAB PO PRN (21:52)
[2017-07-26] MEDS: LORazepam 1 MG TAB PO PRN ×2 (05:04→22:11)
[2017-07-26 06:11] VITALS: BP 100/58; PULSE 73; RESP 16; TEMP 97.8; O2SAT 97
[2017-07-26] MEDS: INSULIN ASPART SUPPLEMENTAL SCALE SQ SCH ×4 (08:00→20:23)
[2017-07-26] MEDS: REMOVE OLD PATCH T-DERMAL SCH (09:00)
[2017-07-26] MEDS: FLUTICASONE 100 MCG/VILANTEROL 25 MCG INHALER INH SCH (09:00)
[2017-07-26] MEDS: ARIPiprazole 30 MG TAB PO SCH (09:37)
[2017-07-26] MEDS: PANTOPRAZOLE SOD 40 MG DELAYED RELEASE TAB PO SCH (09:39)
[2017-07-26] MEDS: GABAPENTIN 100 MG CAP PO SCH ×3 (09:39→17:32)
[2017-07-26] MEDS: METOPROLOL TARTRATE 25 MG TAB PO SCH ×2 (09:39→20:52)
[2017-07-26] MEDS: NYSTATIN 100,000 UNIT/GM CREAM 15 GM TOPICAL SCH ×2 (09:40→20:52)
[2017-07-26] MEDS: NICOTINE 7 MG/24 HR PATCH T-DERMAL SCH (09:40)
--- NOTE | 2017-07-26 13:53 | HHI.PYPN ---
Subjective Remarks Patient seen and examined with nurse. Chart reviewed. Case discussed with nursing staff. On my exam, patient is calm and cooperative. She expressed hope for discharge tomorrow. She does not spontaneously verbalize any delusional material, nor does she exhibit any mood instability. Bizarre ideation considerably attenuated. No SI or HI. Denies side effects from medications. No physical complaints. Review of Systems Except as stated in HPI: all other systems reviewed are Neg Objective Alert: Yes [place]: Person, Place Mood: Calm Affect: Appropriate Memory Intact: Comment (fair) Hallucinations: Other (No AVH) Delusions: No Delusion Type: Other (odd ideation considerably attenuated) Suicidal: Ideation (No SI) Homicidal: Ideation (No HI) Insight/Judgment Poor Remarks No motor abnormalities noted Labs Date/Time Source Procedure Growth Status 07/20/17 23:36 Blood Peripheral Aerobic Blood Culture - Final NO GROWTH IN 5 DAYS Complete 07/20/17 23:36 Blood Peripheral Anaerobic Blood Culture - Final NO GROWTH IN 5 DAYS Complete Labs reviewed Vitals/IOs Vital Signs Date Time Temp Pulse Resp B/P (MAP) Pulse Ox O2 Delivery O2 Flow Rate FiO2 07/26/17 06:11 97.8 73 16 100/58 (72) 97 Intake and Output 07/26/17 07/26/17 07/27/17 08:00 16:00 00:00 Intake Total 480 ml Balance 480 ml Assessment & Plan Problem List: (1) Bipolar affective, manic, severe w/ psych ICD Codes: F31.2 - Bipolar disorder, current episode manic severe with psychotic features Status: Acute Assessment & Plan Continue current psychotropics as ordered. Check Depakote level, LFTs, and ammonia this evening. Depakote level will likely underrepresent true Depakote level, but we can ensure she is not already at a toxic level. Continue to monitor on the inpatient unit. Continue other medications and care as ordered. Patient will require endocrinological follow-up to ensure that thyroid abnormalities are addressed ongoing as these may have some impact on her psychiatric condition. Justification for Cont. Inpt. Risk for decompensation Discharge Planning Monitor overnight, possible discharge tomorrow. Request HC Surrog/Guard Advoc?: No Tom Hansen MD Jul 26, 2017 13:53
[2017-07-26] MEDS: IBUPROFEN 600 MG TAB PO PRN (15:15)
[2017-07-26] MEDS: DIVALPROEX SODIUM E.R. 250 MG TAB PO SCH (20:50)
[2017-07-26 21:07] LABS: INDIRECT BILIRUBIN 0.2 MG/DL (0.0-0.8); TOTAL BILIRUBIN ADULT 0.7 MG/DL (0.2-1.0)
[2017-07-27] MEDS: IBUPROFEN 600 MG TAB PO PRN (04:22)
[2017-07-27 05:07] VITALS: BP 117/67; PULSE 94; RESP 16; TEMP 97.8; O2SAT 96
[2017-07-27] MEDS: INSULIN ASPART SUPPLEMENTAL SCALE SQ SCH ×3 (08:00→17:00)
[2017-07-27] MEDS: ARIPiprazole 30 MG TAB PO SCH (08:55)
[2017-07-27] MEDS: METOPROLOL TARTRATE 25 MG TAB PO SCH (08:55)
[2017-07-27] MEDS: GABAPENTIN 100 MG CAP PO SCH ×2 (08:55→13:35)
[2017-07-27] MEDS: PANTOPRAZOLE SOD 40 MG DELAYED RELEASE TAB PO SCH (08:55)
[2017-07-27] MEDS: NYSTATIN 100,000 UNIT/GM CREAM 15 GM TOPICAL SCH (08:56)
[2017-07-27] MEDS: FLUTICASONE 100 MCG/VILANTEROL 25 MCG INHALER INH SCH (08:56)
[2017-07-27] MEDS: NICOTINE 7 MG/24 HR PATCH T-DERMAL SCH (08:56)
[2017-07-27] MEDS: REMOVE OLD PATCH T-DERMAL SCH (08:56)
[2017-07-27] MEDS ORDERED: ABIL30TA2 PO (11:14)
[2017-07-27] MEDS ORDERED: GABA100C4 PO (11:14)
[2017-07-27] MEDS ORDERED: DIVA250ER PO (11:14)
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
== END 2017-07-27 17:50 | disposition home or self-care (01) | DRG 885 ==
LOC: NEPD 11:43 → NEDA 19:53 → H270 21:42 → H260 07-24 16:40
PROVIDERS: ADMIT Psychiatry & Neurology Psychiatry; ATTEND Psychiatry & Neurology Psychiatry
DX: F31.2 Bipolar disorder, current episode manic severe with psychotic features (principal); E66.01 Morbid (severe) obesity due to excess calories; I10 Essential (primary) hypertension; E11.9 Type 2 diabetes mellitus without complications; J44.9 Chronic obstructive pulmonary disease, unspecified; M06.9 Rheumatoid arthritis, unspecified; K21.9 Gastro-esophageal reflux disease without esophagitis; F12.10 Cannabis abuse, uncomplicated; F41.9 Anxiety disorder, unspecified; E78.00 Pure hypercholesterolemia, unspecified; M79.7 Fibromyalgia; K58.9 Irritable bowel syndrome, unspecified; R21 Rash and other nonspecific skin eruption; Z72.0 Tobacco use
CPT/HCPCS: 70450; 71010; 73110; 73560; 80048; 80053; 80061; 80076; 80164; 80307; 81001; 82140; 82550; 82607; 82948; 83036; 84439; 84443; 84481; 85025; 85027; 86592; 87040; 87389; 93005; 96372; J1200; J1815

== ENCOUNTER 2018-06-04 19:33 | Observation (INO) ==
[2018-06-04] MEDS ORDERED: Sod Chloride 0.9% Inj 1,000 ML IV.CONT SCH (22:00)
--- NOTE | 2018-06-04 22:08 | ED ---
HPI General Chief Complaint: Abdominal Pain Stated Complaint: Abd Pain Time Seen by Provider: 06/04/18 21:45 Source: patient Limitations: no limitations History of Present Illness HPI narrative: The patient is a 58 year old female who presents to the [facility] emergency department with a history of abdominal pain in the right upper quadrant of the abdomen that she reports is been gradually getting worse over the last 2 weeks. She reports that over the last 2 days it has been constant. She reports that it is a dull aching sensation that become sharp whenever she tries to eat. She reports that she last attempted to eat at lunch. She took one bite of a sandwich and the pain became unbearable and a 10 out of 10 in severity. She denies having any nausea or vomiting. 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 She reports that at baseline she moves her bowels 3-4 times per day. She denies having any blood in her stool or black or tarry stools. She has seen her primary care physician, , regarding these symptoms and was referred to a rag shredder. She reports that she has an appointment scheduled for , however she cannot recall the name of the rag shredder. She denies having any dysuria, hematuria, urinary urgency, or frequency associated with this. She reports that the pain at times radiates to her back. On review of systems otherwise, the patient denies having any known recent fevers, cough, congestion, neck pain, chest pain, shortness of breath,or neurologic symptoms. Related Data Home Medications Medication Instructions Recorded Confirmed aripiprazole 30 mg PO DAILY 06/05/18 06/05/18 divalproex 500 mg PO DAILY 06/05/18 06/05/18 gabapentin 300 mg PO BID 06/05/18 06/05/18 haloperidol 1 mg PO BID 06/05/18 06/05/18 lamotrigine 100 mg PO DAILY 06/05/18 06/05/18 meloxicam 7.5 mg PO DAILY 06/05/18 06/05/18 prednisone 20 mg PO BID 06/05/18 06/05/18 tizanidine 2 mg PO TID 06/05/18 06/05/18 trazodone 50 mg PO DAILY 06/05/18 06/05/18 Allergies Allergy/AdvReac Type Severity Reaction Status Date / Time adhesive Allergy Severe Hives Verified 06/04/18 20:31 codeine Allergy Severe Hives Verified 06/04/18 20:31 morphine Allergy Severe Itching Verified 06/04/18 20:31 Penicillins Allergy Unknown Hives Verified 06/04/18 20:31 Review of Systems ROS Unobtainable All other systems reviewed negative except as stated in HPI [facility] Medical History Medical History Asthma (Acute) Bipolar 1 disorder (Acute) Enlarged heart (Acute) History of hysterectomy (Acute) Recent surgical procedure on lower extremity (Acute) Sepsis (Acute) Connective tissue disorder (Acute) Esophageal stricture (Acute) Hypertension (Acute) Surgical History Surgical History History of cholecystectomy (Acute) Hx of knee surgery (Acute) S/P surgical manipulation of ankle joint (Acute) History of appendectomy (Acute) Social History Social History Substance History: No History of Abuse Smoking Status: Former smoker Tobacco Type: E-Cigarettes How Often Do You Have a Drink Containing Alcohol: Monthly or less Recent Travel in [facility] within the Last 8 Weeks: No Recent Out of Country Travel within the Last 8 Weeks: No Immunization History Tetanus Immunization: Unsure Hx Influenza Vaccine This Season: Yes Exam Const General: cooperative, no acute distress and well developed Nutritional Appearance: well nourished Orientation: alert, awake and oriented x3 HENMT Head: normocephalic and atraumatic Nose: no nasal discharge and no epistaxis Mouth: moist mucous membranes Throat: posterior oropharynx normal and uvula midline Eyes Sclera: normal sclerae Pupils: PERRL Neck Neck: trachea midline and no JVD Resp Effort & Inspection: no use of accessory muscles Auscultation: clear to auscultation bilaterally Cardio Rate: regular rate Rhythm: regular rhythm Heart Sounds: no murmurs GI Inspection: non-distended Palpation: soft, no hepatosplenomegaly and tender in the epigastrum and in the RUQ; not in the LLQ, not in the RLQ, not in the LUQ, not at McBurney's point, Pagan's sign negative, with no rebound tenderness and Rovsing's sign negative Back/Spine/Pelvis Back: no CVA tenderness Skin General: dry skin (warm) Neuro General: alert, awake and oriented x3 Cranial Nerves: other (No facial asymmetry) Speech: speech normal Motor: no movement abnormalities noted Extrem General: normal to inspection (No calf tenderness on palpation), no clubbing, no cyanosis and no edema Psych Mood: congruent mood Affect: other Judgment: judgment good Course Reevaluation(s) Reevaluation #1: The patient on reexamination of her abdomen after CT scan results were obtained and laboratory results were obtained was remarkable for continued right upper quadrant abdominal pain on palpation. The patient will be admitted for continued evaluation and treatment. Consultations Consultation #1: The patient's case including history, pertinent physical examination findings, and laboratory studies were discussed with Dr. Hanson. It was agreed that the patient would be admitted to the hospitalist service. Initial Documented Vital Signs Temperature 98.6 F 06/04/18 20:31 Pulse Rate 84 06/04/18 20:31 Respiratory Rate 18 06/04/18 20:31 Blood Pressure 135/76 06/04/18 20:31 Pulse Oximetry 97 06/04/18 20:31 Last Documented Vital Signs Temperature 98.6 F 06/04/18 20:31 Pulse Rate 77 06/04/18 21:56 Respiratory Rate 18 06/04/18 21:56 Blood Pressure 179/93 H 06/04/18 21:56 Pulse Oximetry 96 06/04/18 21:56 Medical Decision Making MDM Narrative Medical decision making narrative: During the course of the patient's emergency department visit, the patient's history, examination, and differential diagnosis were reviewed with the patient. The patient was placed on a equipment monitor phototypesetting with oximetry and frequent blood pressure monitoring. The patient had IV access obtained and blood work sent for analysis. The diagnostic evaluation was started regarding the patient abdominal pain. The patient was initially provided normal saline IV fluids. Toradol for pain, Zofran for nausea. The patient's laboratory studies are remarkable for a white count of 7.9, platelets 143 with 71.7 neutrophils, 10.8 monocytes, 15.6 hemoglobin, PT 10, PTT 22.8, chemistry is remarkable for potassium of 3.4, AST 785, alk phos 166, ALT 642 which is all increased compared to prior levels, lactic acid is 1.1. Urinalysis shows trace ketones otherwise unremarkable. Valproic acid level is 23. A chest x-ray shows no acute abnormality, CT scan of the abdomen and pelvis shows the patient is status post cholecystectomy with prominence of the common bile duct noted, areas of soft tissue filling defect within the duct that are unchanged in appearance in comparison to a 2016 examination. This could represent small stones or sludge. The patient has a small retrocardiac hiatal hernia, unremarkable bowel gas pattern with no inflammatory change or obstruction, small pericardial effusion. The patient's results were discussed with the patient, including the plan of care. I explained that further testing and/ or monitoring is indicated based on the patient's history, examination, and/ or laboratory findings. Therefore, I recommended admission for additional evaluation. The patient expressed understanding and was agreeable with this plan. The patient was admitted to the hospital in stable condition and sent to a bed under the care of [facility] service. Differential Diagnosis Differential Diagnosis: Hepatitis, versus pancreatitis, versus colitis Medical Records Medical records reviewed: Yes I reviewed the patient's medical records. Lab Data Result diagrams: 06/04/18 22:00 06/04/18 23:10 Lab Results 06/04/18 06/04/18 06/04/18 Range/Units 22:00 22:00 22:20 WBC 7.9 (4.0-11.0) th/mm3 RBC 5.15 (4.00-5.30) mil/mm3 Hgb 15.6 H (11.6-15.3) gm/dL Hct 45.6 (35.0-46.0) % MCV 88.5 (80.0-100.0) fL MCH 30.3 (27.0-34.0) pg MCHC 34.2 (32.0-36.0) % RDW 14.1 (11.6-17.2) % Plt Count 143 L (150-450) th/mm3 MPV 7.8 (7.0-11.0) fL Neut % (Auto) 71.7 H (16.0-70.0) % Lymph % (Auto) 16.6 (9.0-44.0) % [place] % (Auto) 10.8 H (0.0-8.0) % Eos % (Auto) 0.7 (0.0-4.0) % Baso % (Auto) 0.2 (0.0-2.0) % Neut # (Auto) 5.6 (1.8-7.7) th/mm3 Lymph # (Auto) 1.3 (1.0-4.8) th/mm3 [place] # (Auto) 0.9 (0.0-0.9) th/mm3 Eos # (Auto) 0.1 (0.0-0.4) th/mm3 Baso # (Auto) 0.0 (0.0-0.2) th/mm3 WBC Differential . Differential Comment Auto diff final PT 10.0 (9.8-11.6) sec INR 1.0 Ratio APTT 22.8 L (24.3-30.1) sec Sodium (136-145) meq/L Potassium (3.5-5.1) meq/L Chloride (98-107) meq/L Carbon Dioxide (21.0-32.0) meq/L Anion Gap (5-15) meq/L BUN (7-18) mg/dL Creatinine (0.50-1.00) mg/dL Estimated GFR (>89) mL/min Random Glucose (74-106) mg/dL Lactic Acid 1.1 (0.4-2.0) mmol/L Calcium (8.5-10.1) mg/dL Total Bilirubin (0.2-1.0) mg/dL AST (15-37) U/L ALT (10-53) U/L Alkaline Phosphatase (45-117) U/L Total Protein (6.4-8.2) g/dL Albumin (3.4-5.0) g/dL Lipase (73-393) U/L Urine Color (Yellw/Straw) Urine Clarity (Clear) Urine pH (5.0-8.5) Ur Specific [place] (1.002-1.035) Urine Protein (Neg-Trace) mg/dL Urine Glucose (UA) (Negative) mg/dL Urine Ketones (Negative) mg/dL Urine Occult Blood (Negative) Urine Nitrate (Negative) Urine Bilirubin (Negative) Urine Urobilinogen (Less than 2) mg/dL Ur Leukocyte Esterase (Negative) Urine RBC (0-3) /hpf Urine WBC (0-5) /hpf Ur Squamous Epith Cells (0-5) /hpf Micro UA Comment Urine Culture Comments Valproic Acid (50-100) mcg/mL 06/04/18 06/04/18 06/04/18 Range/Units 23:10 23:10 23:20 WBC (4.0-11.0) th/mm3 RBC (4.00-5.30) mil/mm3 Hgb (11.6-15.3) gm/dL Hct (35.0-46.0) % MCV (80.0-100.0) fL MCH (27.0-34.0) pg MCHC (32.0-36.0) % RDW (11.6-17.2) % Plt Count (150-450) th/mm3 MPV (7.0-11.0) fL Neut % (Auto) (16.0-70.0) % Lymph % (Auto) (9.0-44.0) % [place] % (Auto) (0.0-8.0) % Eos % (Auto) (0.0-4.0) % Baso % (Auto) (0.0-2.0) % Neut # (Auto) (1.8-7.7) th/mm3 Lymph # (Auto) (1.0-4.8) th/mm3 [place] # (Auto) (0.0-0.9) th/mm3 Eos # (Auto) (0.0-0.4) th/mm3 Baso # (Auto) (0.0-0.2) th/mm3 WBC Differential Differential Comment PT (9.8-11.6) sec INR Ratio APTT (24.3-30.1) sec Sodium 137 (136-145) meq/L Potassium 3.4 L (3.5-5.1) meq/L Chloride 100 (98-107) meq/L Carbon Dioxide 30.5 (21.0-32.0) meq/L Anion Gap 7 (5-15) meq/L BUN 14 (7-18) mg/dL Creatinine 0.68 (0.50-1.00) mg/dL Estimated GFR 89 (>89) mL/min Random Glucose 89 (74-106) mg/dL Lactic Acid (0.4-2.0) mmol/L Calcium 9.2 (8.5-10.1) mg/dL Total Bilirubin 1.0 (0.2-1.0) mg/dL AST 785 H (15-37) U/L ALT 642 H (10-53) U/L Alkaline Phosphatase 166 H (45-117) U/L Total Protein 7.6 (6.4-8.2) g/dL Albumin 4.0 (3.4-5.0) g/dL Lipase 167 (73-393) U/L Urine Color Yellow (Yellw/Straw) Urine Clarity Clear (Clear) Urine pH 6.0 (5.0-8.5) Ur Specific [place] 1.014 (1.002-1.035) Urine Protein Negative (Neg-Trace) mg/dL Urine Glucose (UA) Negative (Negative) mg/dL Urine Ketones Trace H (Negative) mg/dL Urine Occult Blood Negative (Negative) Urine Nitrate Negative (Negative) Urine Bilirubin Negative (Negative) Urine Urobilinogen 4 or greater (Less than 2) mg/dL Ur Leukocyte Esterase Negative (Negative) Urine RBC Less than 1 (0-3) /hpf Urine WBC 1 (0-5) /hpf Ur Squamous Epith Cells <1 (0-5) /hpf Micro UA Comment Culture not ind Urine Culture Comments Culture not ind Valproic Acid 23 L Cancelled (50-100) mcg/mL Imaging Data Radiologist's impression: Chest X-Ray 06/04/18 21:58 CONCLUSION: No active disease. Stable calcified granuloma left lung base. Mild cardiomegaly. Abdomen/Pelvis CT 06/05/18 00:00 CONCLUSION: 1. Status post cholecystectomy with mild prominence of the common bile duct again noted. There are areas of soft tissue filling defect within the duct which are unchanged in appearance compared to the 2016 examination. This could represent small stones or sludge. 2. Small retrocardiac hiatal hernia. 3. Unremarkable bowel gas pattern with no inflammatory change or obstruction. 4. Small pericardial effusion. Discharge Plan Discharge Disposition Patient Disposition: 30 Still Patient Discharge Details Diagnosis: Abdominal pain, Elevated liver enzymes Physicians Team ED Provider: Janki Mcdonald Primary Care Provider: Tom Mckeon Attending Provider: Omar Hanson Other Providers: Tommie Mclaughlin Discharge Interventions Interventions: Vital Signs Last Done: 06/04/18 21:56 Status ED Status: Admitted Observation Patient
--- NOTE | 2018-06-04 22:31 | XR ---
EXAM DATE: 06/04/2018 10:20 PM EDT AGE/SEX: 58 years / Female INDICATIONS: Right epigastric pain. CLINICAL DATA: This is the patient's initial encounter. Patient reports that signs and symptoms have been present for 1 week and indicates a pain score of 10/10. MEDICAL/SURGICAL HISTORY: Hypertension. Asthma. Smoker. Appendectomy. Cholecystectomy. Hyst erectomy. COMPARISON: [facility] – [place]ST SINGLE AP, 07/20/2017. . FINDINGS: A single AP view of the chest demonstrates the lungs to be symmetrically aerated without evidence of mass, infiltrate or effusion. The cardiomediastinal contours are mildly prominent. CONCLUSION: No active disease. Stable calcified granuloma left lung base. Mild cardiomegaly. Electronically signed by: Won Washington MD 06/04/2018 10:30 PM EDT
[2018-06-04 22:42] LABS: Baso % (Auto) 0.2 % (0.0-2.0); Eos # (Auto) 0.1 th/mm3 (0.0-0.4); Eos % (Auto) 0.7 % (0.0-4.0); Hematocrit 45.6 % (35.0-46.0); Hemoglobin 15.6 gm/dL (11.6-15.3); Lymph # (Auto) 1.3 th/mm3 (1.0-4.8); Lymph % (Auto) 16.6 % (9.0-44.0); Mean Corpuscular HGB Conc 34.2 % (32.0-36.0); Mean Corpuscular Hemoglobin 30.3 pg (27.0-34.0); Mean Corpuscular Volume 88.5 fL (80.0-100.0); Mean Platelet Volume 7.8 fL (7.0-11.0); Mono # (Auto) 0.9 th/mm3 (0.0-0.9); Mono % (Auto) 10.8 % (0.0-8.0); Neut # (Auto) 5.6 th/mm3 (1.8-7.7); Neut % (Auto) 71.7 % (16.0-70.0); Platelet Count 143 th/mm3 (150-450); Red Blood Count 5.15 mil/mm3 (4.00-5.30); Red Cell Distribution Width 14.1 % (11.6-17.2); White Blood Count 7.9 th/mm3 (4.0-11.0)
[2018-06-04 23:05] LABS: Activated Partial Thrombo Time 22.8 sec (24.3-30.1)
[2018-06-05 00:07] LABS: Anion Gap 7 meq/L (5-15); Aspartate Aminotransferase 785 U/L (15-37); Blood Urea Nitrogen 14 mg/dL (7-18); Calcium 9.2 mg/dL (8.5-10.1); Carbon Dioxide 30.5 meq/L (21.0-32.0); Chloride 100 meq/L (98-107); Glomerular Filtration Rate 89 mL/min (>89); Glucose,Random 89 mg/dL (74-106); Lipase 167 U/L (73-393); Potassium 3.4 meq/L (3.5-5.1); Sodium 137 meq/L (136-145)
[2018-06-05 00:10] LABS: Alanine Aminotransferase 642 U/L (10-53); Alkaline Phosphatase 166 U/L (45-117); Total Protein 7.6 g/dL (6.4-8.2)
--- NOTE | 2018-06-05 01:22 | CT ---
EXAM DATE: 06/05/2018 1:13 AM EDT AGE/SEX: 58 years / Female INDICATIONS: Right upper quadrant pain. CLINICAL DATA: This is the patient's initial encounter. Patient reports that signs and symptoms have been present for 1 day and indicates a pain score of 5/10. MEDICAL/SURGICAL HISTORY: Asthma. Hypertension. Cholecystectomy. Hysterectomy. Appendectomy. ORAL CONTRAST: No oral contrast ingested. RADIATION DOSE: 10.61 CTDI (mGy) COMPARISON: [facility], CT ABDOMEN AND PELVIS W/ CONTRAST, 10/16/2016. . TECHNIQUE: Multiple contiguous axial images were obtained through the abdomen and pelvis following b olus infusion of 100 ml Omnipaque 350 (iohexol) nonionic water-soluble contrast as a single exam do se. No oral contrast ingested. Using automated exposure control and adjustment of the mA and/or kV a ccording to patient size, radiation dose was kept as low as reasonably achievable to obtain optimal d iagnostic quality images. DICOM format image data is available electronically for review and compari son. FINDINGS: Lower Lungs: The visualized lower lungs are clear. There is a small amount of pericardial fluid noted . There is a small calcified granuloma again noted in the left lower lobe. Liver: The patient is status post cholecystectomy. The liver remains normal in size and shape with no focal mass. The common bile duct remains mildly prominent with soft tissue density again noted centr ally best seen on axial image #28. This is unchanged in appearance. The distal duct is normal in size and tapers down. Slight intrahepatic ductal prominence is again noted. Spleen: Homogeneous density without enlargement. Pancreas: Unremarkable without mass or calcification. Kidneys: Normal in size and shape. No evidence of mass or hydronephrosis. Adrenal Glands: Unremarkable. Aorta: The aorta and proximal iliac vessels are grossly unremarkable without aneurysmal dilation. Bowel/Mesentery: There is a small hiatal hernia. No oral contrast was given limiting the sensitivity. The bowel loops are grossly unremarkable. The cecum and sigmoid colon have a normal configuration. Abdominal Wall: Intact. Retroperitoneum: No evidence of adenopathy in the retrocrural, para-aortic, or deep pelvic regions. Bladder: Contours are smooth. Reproductive Organs: No abnormal masses or calcifications seen. Inguinal: The inguinal region is unremarkable without evidence of adenopathy. Bony Structures: Unremarkable. CONCLUSION: 1. Status post cholecystectomy with mild prominence of the common bile duct again noted. There are a reas of soft tissue filling defect within the duct which are unchanged in appearance compared to the 2016 examination. This could represent small stones or sludge. 2. Small retrocardiac hiatal hernia. 3. Unremarkable bowel gas pattern with no inflammatory change or obstruction. 4. Small pericardial effusion. Electronically signed by: Raymundo Rausch MD 06/05/2018 1:21 AM EDT
[2018-06-05 01:36] LABS: Bilirubin,Urine Negative (Negative); Clarity,Urine Clear (Clear); Color,Urine Yellow (Yellw/Straw); Glucose,Urine (UA) Negative (Negative); Leukocyte Esterase,Urine Negative (Negative); Nitrite,Urine Negative (Negative); Specific Gravity,Urine 1.014 (1.002-1.035); Squamous Epithelial Cell,Urine <1 /hpf (0-5); Urobilinogen,Urine 4 or Greater mg/dL (Less than 2)
[2018-06-05] MEDS ORDERED: Ketorolac Inj 30 MG/ML (IVP) Vial IV.PUSH ONE (01:36)
[2018-06-05 01:58] LABS: Valproic Acid 23 mcg/mL (50-100)
[2018-06-05 05:30] LABS: Hepatitits B Surface Antigen Nonreactive (Nonreactive)
--- NOTE | 2018-06-05 05:51 | P.HPIM ---
History of Present Illness Primary Care Physician: Tom Mckeon MD History of Present Illness: 58-year-old female with a history of hypertension, bipolar disorder who presents with 2 week history of intermittent, postprandial sharp right upper quadrant pain which is nonradiating. She denies any chest pain or shortness of breath. Denies nausea or vomiting. She does report decreased appetite secondary to postprandial pain. She also reports loose bowel movements for the past year. Review of Systems All other systems reviewed negative except as stated in HPI PMFSH - History History Provided By: Patient - Medical History Medical History: Medical History (Last Updated 06/04/18 @ 22:05 by Janki Mcdonald MD) Asthma Bipolar 1 disorder Enlarged heart History of hysterectomy Recent surgical procedure on lower extremity Sepsis Connective tissue disorder Esophageal stricture Hypertension - Surgical History Surgical History: Surgical History (Last Updated 06/04/18 @ 22:06 by Janki Mcdonald MD) History of cholecystectomy Hx of knee surgery S/P surgical manipulation of ankle joint History of appendectomy - Family History Family History: Family History (Last Updated 06/05/18 @ 05:49 by Omar Hanson MD) Father Family estrangement Mother Uterine cancer - Tobacco History Smoking Status: Former smoker Tobacco Type: E-Cigarettes - Alcohol History How Often Do You Have a Drink Containing Alcohol: Monthly or less - Substance Use History Substance History: No History of Abuse - Travel History Recent Travel in the [place] Within the Last 8 Weeks: No Recent Travel Out of the Country Within the Last 8 Weeks: No - Immunization History Tetanus Immunization: Unsure Hx Influenza Vaccine This Season: Yes Medications and Allergies Active Medications: Active Medications Sodium Chloride (Ns Inj) 1,000 mls @ 125 mls/hr IV.CONT .Q8H CO[place]TT[place] Stop: 06/05/18 05:59 Last Admin: 06/04/18 23:26 Dose: 125 mls/hr Sodium Chloride (Ns Flush) 2 ml IV.FLUSH PRN PRN PRN Reason: FLUSH AFTER USING IV ACCESS Sodium Chloride (Ns Flush) 2 ml IV.FLUSH BID COLETTE Sodium Chloride (Ns Flush) 2 ml IV.FLUSH PRN PRN PRN Reason: FLUSH AFTER USING IV ACCESS Allergies Allergy/AdvReac Type Severity Reaction Status Date / Time adhesive Allergy Severe Hives Verified 06/04/18 20:31 codeine Allergy Severe Hives Verified 06/04/18 20:31 morphine Allergy Severe Itching Verified 06/04/18 20:31 Penicillins Allergy Unknown Hives Verified 06/04/18 20:31 Home Medications Medication Instructions Recorded Confirmed Type aripiprazole 30 mg PO DAILY 06/05/18 06/05/18 History divalproex 500 mg PO DAILY 06/05/18 06/05/18 History gabapentin 300 mg PO BID 06/05/18 06/05/18 History haloperidol 1 mg PO BID 06/05/18 06/05/18 History lamotrigine 100 mg PO DAILY 06/05/18 06/05/18 History meloxicam 7.5 mg PO DAILY 06/05/18 06/05/18 History prednisone 20 mg PO BID 06/05/18 06/05/18 History tizanidine 2 mg PO TID 06/05/18 06/05/18 History trazodone 50 mg PO DAILY 06/05/18 06/05/18 History Exam Vital signs: Vital Signs 06/04/18 20:31 06/04/18 21:56 06/05/18 03:35 Temperature 98.6 F Pulse Rate 84 77 63 Respiratory Rate Blood Pressure 135/76 179/93 H 118/71 Pulse Oximetry 97 96 97 Intake & Output 06/04/18 06/04/18 06/05/18 06:59 18:59 06:59 Weight 86.183 kg Narrative: GENERAL: Patient sitting up in bed. Appears comfortable. SKIN: Warm and dry. HEAD: Atraumatic. Normocephalic. EYES: Pupils equal and round. No scleral icterus. No injection or drainage. ENT: No nasal bleeding or discharge. Mucous membranes pink and moist. NECK: Trachea midline. No JVD. CARDIOVASCULAR: Regular rate and rhythm. RESPIRATORY: No accessory muscle use. Clear to auscultation. Breath sounds equal bilaterally. GASTROINTESTINAL: Abdomen soft,nondistended. New to moderate palpation in epigastrium and right upper quadrant. No rebound or guarding. Hepatic and splenic margins not palpable. MUSCULOSKELETAL: Extremities without clubbing, cyanosis, or edema. No obvious deformities. NEUROLOGICAL: Awake and alert. No obvious cranial nerve deficits. Motor grossly within normal limits. Five out of 5 muscle strength in the arms and legs. Normal speech. PSYCHIATRIC: Appropriate mood and affect; insight and judgment normal. Results - Labs CBC & Chem 7: 06/04/18 22:00 06/04/18 23:10 Labs: Short CBC 06/04/18 Range/Units 22:00 WBC 7.9 (4.0-11.0) th/mm3 Hgb 15.6 H (11.6-15.3) gm/dL Hct 45.6 (35.0-46.0) % Plt Count 143 L (150-450) th/mm3 BMP 06/04/18 23:10 Sodium 137 Potassium 3.4 L Chloride 100 Carbon Dioxide 30.5 BUN 14 Creatinine 0.68 Calcium 9.2 Liver Function 06/04/18 Range/Units 23:10 Total Bilirubin 1.0 (0.2-1.0) mg/dL AST 785 H (15-37) U/L ALT 642 H (10-53) U/L Alkaline Phosphatase 166 H (45-117) U/L Albumin 4.0 (3.4-5.0) g/dL Urine 06/04/18 Range/Units 23:20 Urine Color Yellow (Yellw/Straw) Urine Clarity Clear (Clear) Urine pH 6.0 (5.0-8.5) Ur Specific [place] 1.014 (1.002-1.035) Urine Protein Negative (Neg-Trace) mg/dL Urine Glucose (UA) Negative (Negative) mg/dL - Imaging Impressions Chest X-Ray 06/04/18 21:58 CONCLUSION: No active disease. Stable calcified granuloma left lung base. Mild cardiomegaly. Abdomen/Pelvis CT 06/05/18 00:00 CONCLUSION: 1. Status post cholecystectomy with mild prominence of the common bile duct again noted. There are areas of soft tissue filling defect within the duct which are unchanged in appearance compared to the 2016 examination. This could represent small stones or sludge. 2. Small retrocardiac hiatal hernia. 3. Unremarkable bowel gas pattern with no inflammatory change or obstruction. 4. Small pericardial effusion. Caprini VTE Risk Assessment Caprini VTE Risk Assessment: No/Low Risk (score <= 1) Caprini Risk Assessment Model: Point Value = 1 Point Value = 2 Point Value = 3 Point Value = 5 Age 41-60 Minor surgery BMI > 25 kg/m2 Swollen legs Varicose veins or History of unexplained or recurrent spontaneous Oral contraceptives or hormone replacement Sepsis (< 1 month) Serious lung disease, including pneumonia (< 1 month) Abnormal pulmonary function Acute myocardial infarction Congestive heart failure (< 1 month) History of inflammatory bowel disease Medical patient at bed rest Age 61-74 Arthroscopic surgery Major open surgery (> 45 min) Laparoscopic surgery (> 45 min) Malignancy Confined to bed (> 72 hours) Immobilizing plaster cast Central venous access Age >= 75 History of VTE Family history of VTE Factor V Leiden Prothrombin [id number] Lupus anticoagulant Anticardiolipin antibodies Elevated serum homocysteine Heparin-induced thrombocytopenia Other congenital or acquired thrombophilia Stroke (< 1 month) Elective arthroplasty Hip, pelvis, or leg fracture Acute spinal cord injury (< 1 month) Prophylaxis Regimen: Total Risk Factor Score Risk Level Prophylaxis Regimen 0-1 Low Early ambulation 2 Moderate Order ONE of the following: *Sequential Compression Device (SCD) *Heparin 5000 units SQ BID 3-4 Higher Order ONE of the following medications: *Heparin 5000 units SQ TID *Enoxaparin/Lovenox 40 mg SQ daily (WT < 150 kg, CrCl > 30 mL/min) *Enoxaparin/Lovenox 30 mg SQ daily (WT < 150 kg, CrCl > 10-29 mL/min) *Enoxaparin/Lovenox 30 mg SQ BID (WT < 150 kg, CrCl > 30 mL/min) AND/OR *Sequential Compression Device (SCD) 5 or more Highest Order ONE of the following medications: *Heparin 5000 units SQ TID (Preferred with Epidurals) *Enoxaparin/Lovenox 40 mg SQ daily (WT < 150 kg, CrCl > 30 mL/min) *Enoxaparin/Lovenox 30 mg SQ daily (WT < 150 kg, CrCl > 10-29 mL/min) *Enoxaparin/Lovenox 30 mg SQ BID (WT < 150 kg, CrCl > 30 mL/min) AND *Sequential Compression Device (SCD) Assessment and Plan - Plan //Right upper quadrant pain //Transaminitis CT abdomen with possible small stones or sludge in common bile duct. Unchanged from 2016, however patient had episode in 2016. Will consult GI. Appreciate assistance //History of schizoaffective disorder with psychosis = Appears stable. Continue home medications. //History of chronic pain and fibromyalgia Continue home medications. //History of COPD does not appear to be in exacerbation. As needed inhaler. Discussed Condition With: Patient, nurse, ED physician.
[2018-06-05 06:06] LABS: Hepatitis A IgM Antibody Nonreactive (Nonreactive)
--- NOTE | 2018-06-05 08:52 | P.CONGI ---
History of Present Illness Consult date: 06/05/18 Consult reason: Elevated LFTs, abdominal pain Chief complaint: Abd Pain, Elev Liver Enzymes, r/o Biliary Obstruct History of Present Illness: This is a 58 yo F who presented to the ER last night with complaints of RUQ pain for the past two weeks, pain is intermittent, describes it as sharp, worse after eating and eventually resolves on its own. Pt also reports some nausea with an empty stomach, denies any emesis. Pt also complaining of diarrhea for the past two years, states began when she was treated for a liver infection, sounds like a liver abscess because she states she had something drained. Reports some occasional urgency, denies incontinence, has about 2-4 episodes of stools daily. She was following ID at that time. Pt is post cholecystectomy, removed when she was 41 years old. Last EGD with dilatation done approximately [address] Naylor, also reports findings of scleroderma, denies any dysphagia, odynophagia, and heartburn. Last colonoscopy was when she was 51 years old and states this exam was normal. Drinks alcohol occasionally. Vapes nicotine daily. Admits to use of sublingual CBD oil. Denies family history of colon cancer, UC, and crohns. Of note, pt is taking Prednisone and Meloxicam daily for sciatica. <Melissa Moe - Last Filed: 06/05/18 08:40> Review of Systems Gastrointestinal: Reports abdominal pain, Reports loose stools, Reports nausea, Denies black, tarry stools, Denies bright, red blood in stools, Denies coffee ground vomit, Denies heartburn, Denies incontinent of stools, Denies vomiting <Melissa Moe - Last Filed: 06/05/18 08:40> PMFSH - History History Provided By: Patient - Medical History Medical History: Medical History (Last Updated 06/04/18 @ 22:05 by Janki Mcdonald MD) Asthma Bipolar 1 disorder Enlarged heart History of hysterectomy Recent surgical procedure on lower extremity Sepsis Connective tissue disorder Esophageal stricture Hypertension - Surgical History Surgical History: Surgical History (Last Updated 06/04/18 @ 22:06 by Janki Mcdonald MD) History of cholecystectomy Hx of knee surgery S/P surgical manipulation of ankle joint History of appendectomy - Family History Family History: Family History (Last Updated 06/05/18 @ 05:49 by Omar Hanson MD) Father Family estrangement Mother Uterine cancer - Tobacco History Smoking Status: Former smoker Tobacco Type: E-Cigarettes - Alcohol History How Often Do You Have a Drink Containing Alcohol: Monthly or less - Substance Use History Substance History: No History of Abuse - Travel History Recent Travel in the [place] Within the Last 8 Weeks: No Recent Travel Out of the Country Within the Last 8 Weeks: No - Immunization History Tetanus Immunization: Unsure Hx Influenza Vaccine This Season: Yes <Melissa Moe - Last Filed: 06/05/18 08:40> - Medical History Medical History: Medical History (Last Updated 06/04/18 @ 22:05 by Janki Mcdonald MD) Asthma Bipolar 1 disorder Enlarged heart History of hysterectomy Recent surgical procedure on lower extremity Sepsis Connective tissue disorder Esophageal stricture Hypertension - Surgical History Surgical History: Surgical History (Last Updated 06/04/18 @ 22:06 by Janki Mcdonald MD) History of cholecystectomy Hx of knee surgery S/P surgical manipulation of ankle joint History of appendectomy - Family History Family History: Family History (Last Updated 06/05/18 @ 05:49 by Omar Hanson MD) Father Family estrangement Mother Uterine cancer - Substance Use Type Other Type: cbd oil Status: Active <Tommie Mclaughlin - Last Filed: 06/05/18 13:20> Medications and Allergies Active Medications: Active Medications Aripiprazole (Abilify) 30 mg PO DAILY [facility] Divalproex Sodium (Depakote Er) 500 mg PO DAILY [facility] Gabapentin (Neurontin) 300 mg PO BID [facility] Haloperidol (Haldol) 1 mg PO BID [place] Lamotrigine (Lamictal) 100 mg PO DAILY [facility] [place] Sodium Chloride (Ns Flush) 2 ml IV.FLUSH BID [place] Sodium Chloride (Ns Flush) 2 ml IV.FLUSH PRN PRN PRN Reason: FLUSH AFTER USING IV ACCESS Tizanidine HCl (Zanaflex) 2 mg PO TID [place] Trazodone HCl (Desyrel) 50 mg PO DAILY [place] <Melissa Moe - Last Filed: 06/05/18 08:40> Active Medications: Active Medications Aripiprazole (Abilify) 30 mg PO DAILY [facility] [place] Last Admin: 06/05/18 13:04 Dose: 30 mg Cholestyramine Resin (Questran 4 Gm Pkt) 4 gm PO DAILY [facility] [place] Last Admin: 06/05/18 13:04 Dose: 4 gm Divalproex Sodium (Depakote Er) 500 mg PO DAILY [facility] [place] Last Admin: 06/05/18 13:06 Dose: 500 mg Gabapentin (Neurontin) 300 mg PO BID [facility] Last Admin: 06/05/18 13:05 Dose: 300 mg Haloperidol (Haldol) 1 mg PO BID [facility] [place] Last Admin: 06/05/18 13:04 Dose: 1 mg Lamotrigine (Lamictal) 100 mg PO DAILY [facility] [place] Last Admin: 06/05/18 13:06 Dose: 100 mg Sodium Chloride (Ns Flush) 2 ml IV.FLUSH BID [facility] [place] Last Admin: 06/05/18 13:06 Dose: 2 ml Sodium Chloride (Ns Flush) 2 ml IV.FLUSH PRN PRN PRN Reason: FLUSH AFTER USING IV ACCESS Tizanidine HCl (Zanaflex) 2 mg PO TID [facility] [place] Last Admin: 06/05/18 13:04 Dose: 2 mg Trazodone HCl (Desyrel) 50 mg PO DAILY [facility] [place] <Tommie Mclaughlin - Last Filed: 06/05/18 13:20> Allergies Allergy/AdvReac Type Severity Reaction Status Date / Time adhesive Allergy Severe Hives Verified 06/04/18 20:31 codeine Allergy Severe Hives Verified 06/04/18 20:31 morphine Allergy Severe Itching Verified 06/04/18 20:31 Penicillins Allergy Unknown Hives Verified 06/04/18 20:31 Home Medications Medication Instructions Recorded Confirmed Type aripiprazole 30 mg PO DAILY 06/05/18 06/05/18 History divalproex 500 mg PO DAILY 06/05/18 06/05/18 History gabapentin 300 mg PO BID 06/05/18 06/05/18 History haloperidol 1 mg PO BID 06/05/18 06/05/18 History lamotrigine 100 mg PO DAILY 06/05/18 06/05/18 History meloxicam 7.5 mg PO DAILY 06/05/18 06/05/18 History prednisone 20 mg PO BID 06/05/18 06/05/18 History tizanidine 2 mg PO TID 06/05/18 06/05/18 History trazodone 50 mg PO DAILY 06/05/18 06/05/18 History Exam Vital signs: Vital Signs 06/04/18 20:31 06/04/18 21:56 06/05/18 03:35 Temperature 98.6 F Pulse Rate 84 77 63 Respiratory Rate 18 18 18 Blood Pressure 135/76 179/93 H 118/71 Pulse Oximetry 97 96 97 06/05/18 07:30 Temperature Pulse Rate Respiratory Rate 16 Blood Pressure Pulse Oximetry Intake & Output 06/04/18 06/05/18 06/05/18 18:59 06:59 18:59 Weight 86.183 kg - Constitutional no acute distress - Routine HEENT Exam Head: Present: normocephalic, atraumatic - Routine Respiratory Exam Absent: accessory muscle use - Routine Cardiovascular Exam Present: RRR - Routine Abdominal Exam Present: soft, normoactive bowel sounds, tenderness (RUQ tenderness ). Absent: distended - Routine Skin Exam Present: dry, warm - Routine Neurological Exam Present: alert, oriented X3 <Melissa Moe - Last Filed: 06/05/18 08:40> Vital signs: Vital Signs 06/04/18 20:31 06/04/18 21:56 06/05/18 03:35 Temperature 98.6 F Pulse Rate 84 77 63 Respiratory Rate 18 18 18 Blood Pressure 135/76 179/93 H 118/71 Pulse Oximetry 97 96 97 06/05/18 07:30 06/05/18 10:17 06/05/18 12:00 Temperature 98.7 F 97.2 F L Pulse Rate 79 73 Respiratory Rate 16 18 18 Blood Pressure 108/64 102/57 L Pulse Oximetry 74 L Intake & Output 06/04/18 06/05/18 06/05/18 18:59 06:59 18:59 Weight 86.183 kg <Tommie Mclaughlin - Last Filed: 06/05/18 13:20> Results - Labs CBC & Chem 7: 06/04/18 22:00 06/04/18 23:10 Labs: Laboratory Results - last 24 hr 06/04/18 06/04/18 06/04/18 22:00 22:00 22:20 WBC 7.9 RBC 5.15 Hgb 15.6 H Hct 45.6 MCV 88.5 MCH 30.3 MCHC 34.2 RDW 14.1 Plt Count 143 L MPV 7.8 Neut % (Auto) 71.7 H Lymph % (Auto) 16.6 [place] % (Auto) 10.8 H Eos % (Auto) 0.7 Baso % (Auto) 0.2 Neut # (Auto) 5.6 Lymph # (Auto) 1.3 [place] # (Auto) 0.9 Eos # (Auto) 0.1 Baso # (Auto) 0.0 WBC Differential . Differential Comment Auto diff final PT 10.0 INR 1.0 APTT 22.8 L Sodium Potassium Chloride Carbon Dioxide Anion Gap BUN Creatinine Estimated GFR Random Glucose Lactic Acid 1.1 Calcium Total Bilirubin AST ALT Alkaline Phosphatase Total Protein Albumin Lipase Urine Color Urine Clarity Urine pH Ur Specific [place] Urine Protein Urine Glucose (UA) Urine Ketones Urine Occult Blood Urine Nitrate Urine Bilirubin Urine Urobilinogen Ur Leukocyte Esterase Urine RBC Urine WBC Ur Squamous Epith Cells Micro UA Comment Urine Culture Comments Valproic Acid Hepatitis A IgM Ab Hep Bs Antigen Hep B Core IgM Ab Hep C IgG Ab 06/04/18 06/04/18 06/04/18 23:10 23:10 23:20 WBC RBC Hgb Hct MCV MCH MCHC RDW Plt Count MPV Neut % (Auto) Lymph % (Auto) [place] % (Auto) Eos % (Auto) Baso % (Auto) Neut # (Auto) Lymph # (Auto) [place] # (Auto) Eos # (Auto) Baso # (Auto) WBC Differential Differential Comment PT INR APTT Sodium 137 Potassium 3.4 L Chloride 100 Carbon Dioxide 30.5 Anion Gap 7 BUN 14 Creatinine 0.68 Estimated GFR 89 Random Glucose 89 Lactic Acid Calcium 9.2 Total Bilirubin 1.0 AST 785 H ALT 642 H Alkaline Phosphatase 166 H Total Protein 7.6 Albumin 4.0 Lipase 167 Urine Color Yellow Urine Clarity Clear Urine pH 6.0 Ur Specific [place] 1.014 Urine Protein Negative Urine Glucose (UA) Negative Urine Ketones Trace H Urine Occult Blood Negative Urine Nitrate Negative Urine Bilirubin Negative Urine Urobilinogen 4 or greater Ur Leukocyte Esterase Negative Urine RBC Less than 1 Urine WBC 1 Ur Squamous Epith Cells <1 Micro UA Comment Culture not ind Urine Culture Comments Culture not ind Valproic Acid 23 L Cancelled Hepatitis A IgM Ab Hep Bs Antigen Hep B Core IgM Ab Hep C IgG Ab 06/05/18 04:00 WBC RBC Hgb Hct MCV MCH MCHC RDW Plt Count MPV Neut % (Auto) Lymph % (Auto) [place] % (Auto) Eos % (Auto) Baso % (Auto) Neut # (Auto) Lymph # (Auto) [place] # (Auto) Eos # (Auto) Baso # (Auto) WBC Differential Differential Comment PT INR APTT Sodium Potassium Chloride Carbon Dioxide Anion Gap BUN Creatinine Estimated GFR Random Glucose Lactic Acid Calcium Total Bilirubin AST ALT Alkaline Phosphatase Total Protein Albumin Lipase Urine Color Urine Clarity Urine pH Ur Specific [place] Urine Protein Urine Glucose (UA) Urine Ketones Urine Occult Blood Urine Nitrate Urine Bilirubin Urine Urobilinogen Ur Leukocyte Esterase Urine RBC Urine WBC Ur Squamous Epith Cells Micro UA Comment Urine Culture Comments Valproic Acid Hepatitis A IgM Ab Nonreactive Hep Bs Antigen Nonreactive Hep B Core IgM Ab Nonreactive Hep C IgG Ab Nonreactive - Imaging Impressions Chest X-Ray 06/04/18 21:58 CONCLUSION: No active disease. Stable calcified granuloma left lung base. Mild cardiomegaly. Abdomen/Pelvis CT 06/05/18 00:00 CONCLUSION: 1. Status post cholecystectomy with mild prominence of the common bile duct again noted. There are areas of soft tissue filling defect within the duct which are unchanged in appearance compared to the 2016 examination. This could represent small stones or sludge. 2. Small retrocardiac hiatal hernia. 3. Unremarkable bowel gas pattern with no inflammatory change or obstruction. 4. Small pericardial effusion. <Melissa Moe - Last Filed: 06/05/18 08:40> - Labs CBC & Chem 7: 06/04/18 22:00 06/04/18 23:10 Labs: Laboratory Results - last 24 hr 06/04/18 06/04/18 06/04/18 22:00 22:00 22:20 WBC 7.9 RBC 5.15 Hgb 15.6 H Hct 45.6 MCV 88.5 MCH 30.3 MCHC 34.2 RDW 14.1 Plt Count 143 L MPV 7.8 Neut % (Auto) 71.7 H Lymph % (Auto) 16.6 [place] % (Auto) 10.8 H Eos % (Auto) 0.7 Baso % (Auto) 0.2 Neut # (Auto) 5.6 Lymph # (Auto) 1.3 [place] # (Auto) 0.9 Eos # (Auto) 0.1 Baso # (Auto) 0.0 WBC Differential . Differential Comment Auto diff final PT 10.0 INR 1.0 APTT 22.8 L Sodium Potassium Chloride Carbon Dioxide Anion Gap BUN Creatinine Estimated GFR Random Glucose Lactic Acid 1.1 Calcium Total Bilirubin AST ALT Alkaline Phosphatase Total Protein Albumin Lipase Urine Color Urine Clarity Urine pH Ur Specific [place] Urine Protein Urine Glucose (UA) Urine Ketones Urine Occult Blood Urine Nitrate Urine Bilirubin Urine Urobilinogen Ur Leukocyte Esterase Urine RBC Urine WBC Ur Squamous Epith Cells Micro UA Comment Urine Culture Comments Valproic Acid Hepatitis A IgM Ab Hep Bs Antigen Hep B Core IgM Ab Hep C IgG Ab 06/04/18 06/04/18 06/04/18 23:10 23:10 23:20 WBC RBC Hgb Hct MCV MCH MCHC RDW Plt Count MPV Neut % (Auto) Lymph % (Auto) [place] % (Auto) Eos % (Auto) Baso % (Auto) Neut # (Auto) Lymph # (Auto) [place] # (Auto) Eos # (Auto) Baso # (Auto) WBC Differential Differential Comment PT INR APTT Sodium 137 Potassium 3.4 L Chloride 100 Carbon Dioxide 30.5 Anion Gap 7 BUN 14 Creatinine 0.68 Estimated GFR 89 Random Glucose 89 Lactic Acid Calcium 9.2 Total Bilirubin 1.0 AST 785 H ALT 642 H Alkaline Phosphatase 166 H Total Protein 7.6 Albumin 4.0 Lipase 167 Urine Color Yellow Urine Clarity Clear Urine pH 6.0 Ur Specific [place] 1.014 Urine Protein Negative Urine Glucose (UA) Negative Urine Ketones Trace H Urine Occult Blood Negative Urine Nitrate Negative Urine Bilirubin Negative Urine Urobilinogen 4 or greater Ur Leukocyte Esterase Negative Urine RBC Less than 1 Urine WBC 1 Ur Squamous Epith Cells <1 Micro UA Comment Culture not ind Urine Culture Comments Culture not ind Valproic Acid 23 L Cancelled Hepatitis A IgM Ab Hep Bs Antigen Hep B Core IgM Ab Hep C IgG Ab 06/05/18 04:00 WBC RBC Hgb Hct MCV MCH MCHC RDW Plt Count MPV Neut % (Auto) Lymph % (Auto) [place] % (Auto) Eos % (Auto) Baso % (Auto) Neut # (Auto) Lymph # (Auto) [place] # (Auto) Eos # (Auto) Baso # (Auto) WBC Differential Differential Comment PT INR APTT Sodium Potassium Chloride Carbon Dioxide Anion Gap BUN Creatinine Estimated GFR Random Glucose Lactic Acid Calcium Total Bilirubin AST ALT Alkaline Phosphatase Total Protein Albumin Lipase Urine Color Urine Clarity Urine pH Ur Specific [place] Urine Protein Urine Glucose (UA) Urine Ketones Urine Occult Blood Urine Nitrate Urine Bilirubin Urine Urobilinogen Ur Leukocyte Esterase Urine RBC Urine WBC Ur Squamous Epith Cells Micro UA Comment Urine Culture Comments Valproic Acid Hepatitis A IgM Ab Nonreactive Hep Bs Antigen Nonreactive Hep B Core IgM Ab Nonreactive Hep C IgG Ab Nonreactive - Imaging Impressions Chest X-Ray 06/04/18 21:58 CONCLUSION: No active disease. Stable calcified granuloma left lung base. Mild cardiomegaly. Abdomen/Pelvis CT 06/05/18 00:00 CONCLUSION: 1. Status post cholecystectomy with mild prominence of the common bile duct again noted. There are areas of soft tissue filling defect within the duct which are unchanged in appearance compared to the 2016 examination. This could represent small stones or sludge. 2. Small retrocardiac hiatal hernia. 3. Unremarkable bowel gas pattern with no inflammatory change or obstruction. 4. Small pericardial effusion. Cholangiopancreatography MRI 06/05/18 00:00 CONCLUSION: 1. Dilation of the common bile duct measuring up to 1.5 cm with 3 large stones in the common duct. The largest measures 1.3 cm. 2. The patient is post cholecystectomy. <Tommie Mclaughlin - Last Filed: 06/05/18 13:20> Assessment and Plan - Plan Assessment: - RUQ pain, intermittent, sharp, worse after meals, x 2 weeks with elevated LFTs History of cholecystectomy at 41 years old (06/05) AST-785 ALT-642 Alk phos-166 T bili-1 CT abdomen and pelvis W IV contrast --> Status post cholecystectomy with mild prominence of the common bile duct again noted. There are areas of soft tissue filling defect within the duct which are unchanged in appearance compared to the 2016 examination. This could represent small stones or sludge. Small retrocardiac hiatal hernia. Unremarkable bowel gas pattern with no inflammatory change or obstruction. Occasional ETOH. Hepatitis panel negative. Lipase WNL Of note, pt takes Meloxicam and Prednisone daily. - Diarrhea- x 2 years- occasional urgency- denies incontinence- states began 2 years ago when she was being treated for a "liver infection", sounds like a liver abscess because pt states she had something drained. Denies hepatitis Plan: MRCP WO contrast Monitor LFTs Trial of Cholestyramine Further recommendations to follow Pt has been seen and examined by myself and Dr. Mclaughlin and this note is written on his behalf <Melissa Moe - Last Filed: 06/05/18 08:40> - Plan Seen and examined, feeling better. Liquid diet today. MRCP with multiple stones. ERCP discussed with pt. and planned for tomorrow. - Attending Attestation The exam, history, and the medical decision-making described in the above note were completed with the assistance of the mid-level provider. I reviewed and agree with the findings presented. I attest that I had a [id number] encounter with the patient on the same day, and personally performed and documented my assessment and findings in the medical record. <Tommie Mclaughlin - Last Filed: 06/05/18 13:20>
[2018-06-05] MEDS ORDERED: traZODone 50 MG Tablet PO SCH ×2 (09:00→21:00)
--- NOTE | 2018-06-05 09:54 | P.PN ---
Subjective Interval history: Follow up for transaminitis, right upper quadrant abdominal pain. Patient is currently doing well. She complains of persistent right upper quadrant abdominal pain. No fever or chills. GI has evaluated patient. Physical Exam Vital signs: Vital Signs 06/04/18 20:31 06/04/18 21:56 06/05/18 03:35 Temperature 98.6 F Pulse Rate 84 77 63 Respiratory Rate 18 18 18 Blood Pressure 135/76 179/93 H 118/71 Pulse Oximetry 97 96 97 06/05/18 07:30 Temperature Pulse Rate Respiratory Rate 16 Blood Pressure Pulse Oximetry Intake & Output 06/04/18 06/05/18 06/05/18 18:59 06:59 18:59 Weight 86.183 kg Narrative: GENERAL: Alert, oriented 3, NAD SKIN: Warm and dry. HEAD: Normocephalic. EYES: No scleral icterus. No injection or drainage. NECK: Supple, trachea midline. No JVD or lymphadenopathy. CARDIOVASCULAR: Regular rate and rhythm without murmurs, gallops, or rubs. RESPIRATORY: Breath sounds equal bilaterally. No accessory muscle use. GASTROINTESTINAL: Abdomen soft, tenderness to palpation over right upper quadrant, nondistended. MUSCULOSKELETAL: No cyanosis, or edema. BACK: Nontender without obvious deformity. No CVA tenderness. Results - Labs CBC & Chem 7: 06/04/18 22:00 06/04/18 23:10 Laboratory Results - last 24 hr 06/04/18 06/04/18 06/04/18 22:00 22:00 22:20 WBC 7.9 RBC 5.15 Hgb 15.6 H Hct 45.6 MCV 88.5 MCH 30.3 MCHC 34.2 RDW 14.1 Plt Count 143 L MPV 7.8 Neut % (Auto) 71.7 H Lymph % (Auto) 16.6 [place] % (Auto) 10.8 H Eos % (Auto) 0.7 Baso % (Auto) 0.2 Neut # (Auto) 5.6 Lymph # (Auto) 1.3 [place] # (Auto) 0.9 Eos # (Auto) 0.1 Baso # (Auto) 0.0 WBC Differential . Differential Comment Auto diff final PT 10.0 INR 1.0 APTT 22.8 L Sodium Potassium Chloride Carbon Dioxide Anion Gap BUN Creatinine Estimated GFR Random Glucose Lactic Acid 1.1 Calcium Total Bilirubin AST ALT Alkaline Phosphatase Total Protein Albumin Lipase Urine Color Urine Clarity Urine pH Ur Specific [place] Urine Protein Urine Glucose (UA) Urine Ketones Urine Occult Blood Urine Nitrate Urine Bilirubin Urine Urobilinogen Ur Leukocyte Esterase Urine RBC Urine WBC Ur Squamous Epith Cells Micro UA Comment Urine Culture Comments Valproic Acid Hepatitis A IgM Ab Hep Bs Antigen Hep B Core IgM Ab Hep C IgG Ab 06/04/18 06/04/18 06/04/18 23:10 23:10 23:20 WBC RBC Hgb Hct MCV MCH MCHC RDW Plt Count MPV Neut % (Auto) Lymph % (Auto) [place] % (Auto) Eos % (Auto) Baso % (Auto) Neut # (Auto) Lymph # (Auto) [place] # (Auto) Eos # (Auto) Baso # (Auto) WBC Differential Differential Comment PT INR APTT Sodium 137 Potassium 3.4 L Chloride 100 Carbon Dioxide 30.5 Anion Gap 7 BUN 14 Creatinine 0.68 Estimated GFR 89 Random Glucose 89 Lactic Acid Calcium 9.2 Total Bilirubin 1.0 AST 785 H ALT 642 H Alkaline Phosphatase 166 H Total Protein 7.6 Albumin 4.0 Lipase 167 Urine Color Yellow Urine Clarity Clear Urine pH 6.0 Ur Specific [place] 1.014 Urine Protein Negative Urine Glucose (UA) Negative Urine Ketones Trace H Urine Occult Blood Negative Urine Nitrate Negative Urine Bilirubin Negative Urine Urobilinogen 4 or greater Ur Leukocyte Esterase Negative Urine RBC Less than 1 Urine WBC 1 Ur Squamous Epith Cells <1 Micro UA Comment Culture not ind Urine Culture Comments Culture not ind Valproic Acid 23 L Cancelled Hepatitis A IgM Ab Hep Bs Antigen Hep B Core IgM Ab Hep C IgG Ab 06/05/18 04:00 WBC RBC Hgb Hct MCV MCH MCHC RDW Plt Count MPV Neut % (Auto) Lymph % (Auto) [place] % (Auto) Eos % (Auto) Baso % (Auto) Neut # (Auto) Lymph # (Auto) [place] # (Auto) Eos # (Auto) Baso # (Auto) WBC Differential Differential Comment PT INR APTT Sodium Potassium Chloride Carbon Dioxide Anion Gap BUN Creatinine Estimated GFR Random Glucose Lactic Acid Calcium Total Bilirubin AST ALT Alkaline Phosphatase Total Protein Albumin Lipase Urine Color Urine Clarity Urine pH Ur Specific [place] Urine Protein Urine Glucose (UA) Urine Ketones Urine Occult Blood Urine Nitrate Urine Bilirubin Urine Urobilinogen Ur Leukocyte Esterase Urine RBC Urine WBC Ur Squamous Epith Cells Micro UA Comment Urine Culture Comments Valproic Acid Hepatitis A IgM Ab Nonreactive Hep Bs Antigen Nonreactive Hep B Core IgM Ab Nonreactive Hep C IgG Ab Nonreactive - Imaging Impressions Chest X-Ray 06/04/18 21:58 CONCLUSION: No active disease. Stable calcified granuloma left lung base. Mild cardiomegaly. Abdomen/Pelvis CT 06/05/18 00:00 CONCLUSION: 1. Status post cholecystectomy with mild prominence of the common bile duct again noted. There are areas of soft tissue filling defect within the duct which are unchanged in appearance compared to the 2016 examination. This could represent small stones or sludge. 2. Small retrocardiac hiatal hernia. 3. Unremarkable bowel gas pattern with no inflammatory change or obstruction. 4. Small pericardial effusion. Assessment and Plan - Assessment (1) Abdominal pain Code(s): R10.9 - Unspecified abdominal pain Status: Acute (2) Elevated liver enzymes Code(s): R74.8 - Abnormal levels of other serum enzymes Status: Acute - Plan Ms. Dinh is a pleasant 58-year-old female with a history of cholecystectomy who presents to the emergency department due to right-sided upper abdominal pain. She was found to have elevated AST, ALT, alk phos. CT abdomen pelvis indicated possible sludge. GI was consulted. Right upper quadrant abdominal pain Elevated liver enzymes -Discussed with GI. Patient will undergo MRCP today. -Per GI patient is also started on cholestyramine 4 g daily. Bipolar disorder Fibromyalgia -Continue Abilify, Depakote, gabapentin, haloperidol, Lamictal. Full code. Ambulation. (1) Abdominal pain Qualifiers: Abdominal location: right upper quadrant Qualified Code(s): R10.11 - Right upper quadrant pain
--- NOTE | 2018-06-05 12:29 | MR ---
EXAM DATE: 06/05/2018 12:19 PM EDT AGE/SEX: 58 years / Female INDICATIONS: Cholelithiasis. Abdominal pain. CLINICAL DATA: This is the patient's subsequent encounter. Patient reports that signs and symptoms h ave been present for 2 days and indicates a pain score of 4/10. MEDICAL/SURGICAL HISTORY: . Gallstones. . Knee surgery. COMPARISON: [facility] [place] A[place]OMEN & PELVIS W CONTRAST, 06/05/2018. . TECHNIQUE: Multiplanar, multisequence images of the abdomen were obtained without contrast including dedicated cholangiographic images. FINDINGS: Problems specific findings: The intrahepatic ducts are normal in caliber. The right and left proper h epatic ducts are mildly dilated. The common hepatic duct and common bile duct are significantly dilat ed measuring up to 1.5 cm in size. There are total of 3 large stones within the distal common duct. T he largest of these measures 1.3 cm. The remaining to measure slightly less than 1 cm in size. The pa tient is post cholecystectomy. The stump of the cystic duct is dilated. MRI source data: The solid organs of the abdomen are grossly intact. There is no retroperitoneal modesto opathy. The abdominal aorta is normal in caliber. No free fluid is seen within the abdomen. CONCLUSION: 1. Dilation of the common bile duct measuring up to 1.5 cm with 3 large stones in the common duct. T he largest measures 1.3 cm. 2. The patient is post cholecystectomy. Electronically signed by: Manoj Armas MD 06/05/2018 12:27 PM EDT
[2018-06-05] MEDS: Haloperidol 1 MG Tablet PO SCH ×2 (13:04→22:21)
[2018-06-05] MEDS: Gabapentin 300 MG Capsule PO SCH ×2 (13:05→22:21)
[2018-06-05] MEDS: lamoTRIgine 100 MG Tablet PO SCH (13:06)
[2018-06-05] MEDS: Divalproex 500 MG ER Tablet PO SCH (13:06)
[2018-06-05] MEDS ORDERED: Chlorhexidine Gluconate 2% 1 Pack (2 Cloths) TOPICAL SCH (14:30)
[2018-06-05] MEDS ORDERED: Metoprolol Tartrate 25 MG Tablet PO SCH (14:30)
[2018-06-05] MEDS ORDERED: Sodium Chlor 0.9% Inj 500 ML IV.SIG SCH (15:00)
[2018-06-06] MEDS ORDERED: Lidocaine PF 1% Inj 5 ML Syringe INFILTRATN ONE (12:00)
--- NOTE | 2018-06-06 12:09 | GIPROC ---
[facility] [address] [facility]. [facility], [address] ERCP PROCEDURE REPORT EXAM DATE: 06/06/2018 PATIENT NAME: Sera Dinh MR #: [id number] BIRTHDATE: 1960 ATTENDING: Tommie Mclaughlin MD ORDER #: [id number] SURVEY RESEARCH TEACHER: Promise Ayala RN STATUS: inpatient INDICATIONS: The patient is a 58 yr old female here for an ERCP due to established bile duct stone(s) PROCEDURE PERFORMED: ERCP with sphincterotomy/papillotomy ERCP with stent placement ERCP with removal of calculus/calculi MEDICATIONS: None and Per Anesthesia. CONSENT: The patient understands the risks and benefits of the procedure and understands that these risks include, but are not limited to: sedation, allergic reaction, infection, perforation and/or bleeding. Alternative means of evaluation and treatment include, among others: physical exam, x-rays, and/or surgical intervention. The patient elects to proceed with this endoscopic procedure. medical equipment was checked for proper function. Hand hygiene and appropriate measures for infection prevention was taken. After the risks, benefits and alternatives of the procedure were thoroughly explained, Informed was verified, confirmed and timeout was successfully executed by the treatment team. With the patient in left semi-prone position, medications were administered intravenously.The Pentax [id number] was passed from the mouth into the esophagus and further advanced from the esophagus into the stomach. From stomach scope was directed to the second portion of the duodenum. Major papilla was aligned with the duodenoscope. The scope position was confirmed fluoroscopically. Rest of the findings/therapeutics are given below. The scope was then completely withdrawn from the patient and the procedure completed. The pulse, BP, and O2 saturation were monitored and documented by the physician and the nursing staff throughout the entire procedure. The patient was cared for as planned according to standard protocol. The patient was then discharged to recovery in stable condition and with appropriate post procedure care. There was a medium sized periampullary diverticulum. The ampulla was located the second portion of the duodenum. It was located within a periampullary diverticulum. Three filling defects were seen. Large stones, dilated CBD. 7 mm sphincterotomy, balloon sweep 15mm x 2. Stones debris extruded from ampulla. 7 x 9 fr stent placed. ADVERSE EVENT: There were no complications. IMPRESSIONS: 1. Medium periampullary diverticulum 2. The ampulla was located within a periampullary diverticulum 3. Large stones, dilated CBD. 7 mm sphincterotomy, balloon sweep 15mm x 2. Stones debris extruded from ampulla. 7 x 9 fr stent placed RECOMMENDATIONS: 1. Liver enzymes 2. Follow-up: GI clinic 2 week(s) REPEAT EXAM: Return 2 months ERCP [facility] a[facility] with [facility] Tommie Mclaughlin MD eSigned: Tommie Mclaughlin MD 06/06/2018 12:09 PM cc:
[2018-06-06] MEDS: Haloperidol 1 MG Tablet PO SCH (12:45)
[2018-06-06 13:16] VITALS: RESP 18; O2SAT 96
[2018-06-06] MEDS: Divalproex 500 MG ER Tablet PO SCH (13:20)
[2018-06-06] MEDS: lamoTRIgine 100 MG Tablet PO SCH (13:20)
[2018-06-06] MEDS: Gabapentin 300 MG Capsule PO SCH (13:20)
--- NOTE | 2018-06-06 13:39 | FL ---
EXAM DATE: 06/06/2018 12:33 PM EDT AGE/SEX: 58 years / Female INDICATIONS: Stones, obstruction CLINICAL DATA: This is the patient's initial encounter. Patient reports that signs and symptoms have been present for 1 day and indicates a pain score of Nonresponsive. MEDICAL/SURGICAL HISTORY: Cholelithasis. . COMPARISON: No prior exams available for comparison. FINDINGS: An ERCP was performed by the ordering physician. The images demonstrate multiple filling defects in the common bile duct. The common bile duct is dilated. On the final film there is an internal biliary stent in place which appears to be in good position. CONCLUSION: Status post placement of an internal biliary stent. Electronically signed by: Esau Prieto MD 06/06/2018 1:38 PM EDT
[2018-06-06 15:18] LABS: Alanine Aminotransferase 354 U/L (10-53); Albumin 3.5 g/dL (3.4-5.0); Anion Gap 7 meq/L (5-15); Aspartate Aminotransferase 145 U/L (15-37); Blood Urea Nitrogen 7 mg/dL (7-18); Calcium 8.7 mg/dL (8.5-10.1); Chloride 107 meq/L (98-107); Glomerular Filtration Rate Greater Than 89 mL/min (>89); Glucose,Random 101 mg/dL (74-106); Potassium 3.9 meq/L (3.5-5.1)
[2018-06-06 15:21] LABS: Alkaline Phosphatase 109 U/L (45-117)
[2018-06-06 15:22] LABS: Sodium 144 meq/L (136-145)
--- NOTE | 2018-06-06 15:27 | P.DS ---
Date of admission: 06/05/18 01:46 Primary care physician: Tom Mckeon MD Brief History from admission: 58-year-old female with a history of hypertension, bipolar disorder who presents with 2 week history of intermittent, postprandial sharp right upper quadrant pain which is nonradiating. She denies any chest pain or shortness of breath. Denies nausea or vomiting. She does report decreased appetite secondary to postprandial pain. She also reports loose bowel movements for the past year. DS: Diagnosis - Discharge Diagnosis (1) Abdominal pain Status: Acute (2) Elevated liver enzymes Status: Acute DS: Summary Hospital Course: Ms. Dinh is a pleasant 58-year-old female with a history of cholecystectomy who presents to the emergency department due to right-sided upper abdominal pain. She was found to have elevated AST, ALT, alk phos. CT abdomen pelvis indicated possible sludge. GI was consulted. MRCP shows bile duct stone. Patient subsequently underwent ERCP on 06/06/2018. During ERCP sphincterectomy, papillotomy and stent placement were performed. Stone was removed as well. Patient tolerated the procedure well and tolerated diet afterwards as well. I discussed with GI attending who cleared for discharge. We obtained a CMP prior to discharge. Her CMP shows significant improvement of her AST ALT and alk phos. Clinically patient is much more comfortable and reports significant improvement of her right upper quadrant abdominal pain. She expresses desire to go home. With GI clearance, we discharged patient home with outpatient GI follow-up. - Time Spent with Patient Total time spent providing and/or coordinating discharge services: Less than 30 minutes - Quality: VTE Deep Vein Thrombosis/Pulmonary Embolism Present on Admission: Yes Exam Vital signs: Vital Signs 06/05/18 15:58 06/05/18 19:29 06/05/18 23:29 Temperature 97.9 F 97.9 F 98.0 F Pulse Rate 76 67 68 Respiratory Rate 16 16 Blood Pressure 99/55 L 82/57 L 90/52 L Pulse Oximetry 97 94 L 95 06/06/18 03:31 06/06/18 07:32 06/06/18 12:15 Temperature 97.9 F 98.1 F 98.0 F Pulse Rate 73 65 75 Respiratory Rate 16 18 20 Blood Pressure 95/51 L 113/70 109/58 L Pulse Oximetry 91 L 94 L 06/06/18 13:15 Temperature 98.8 F Pulse Rate 66 Respiratory Rate 18 Blood Pressure 124/64 Pulse Oximetry 96 Intake & Output 06/05/18 06/06/18 06/06/18 18:59 06:59 18:59 Intake Total 400 / 400 Balance 400 / 400 Intake: Anesthesia Amount 400 / 400 Other: # Voids 3 Narrative: GENERAL: Alert, oriented 3, NAD. SKIN: Warm and dry. HEAD: Normocephalic. EYES: No scleral icterus. No injection or drainage. NECK: Supple, trachea midline. No JVD or lymphadenopathy. CARDIOVASCULAR: Regular rate and rhythm without murmurs, gallops, or rubs. RESPIRATORY: Breath sounds equal bilaterally. No accessory muscle use. GASTROINTESTINAL: Abdomen soft, non-tender, nondistended. MUSCULOSKELETAL: No cyanosis, or edema. BACK: Nontender without obvious deformity. No CVA tenderness. Results Procedures completed during hospitalization: ERCP 06/06/2018. ERCP with sphincterectomy/papillectomy ERCP with stent placement ERCP with removal of calculus/calculi. Labs on day of discharge: Labs from last 24 hours 06/06/18 14:10 Sodium 144 Potassium 3.9 Chloride 107 Carbon Dioxide 30.0 Anion Gap 7 BUN 7 Creatinine 0.54 Estimated GFR Greater than 89 Random Glucose 101 Calcium 8.7 Total Bilirubin 0.6 AST 145 H ALT 354 H Alkaline Phosphatase 109 Total Protein 7.0 D Albumin 3.5 - Impressions ITS Impressions Chest X-Ray 06/04/18 21:58 CONCLUSION: No active disease. Stable calcified granuloma left lung base. Mild cardiomegaly. Abdomen/Pelvis CT 06/05/18 00:00 CONCLUSION: 1. Status post cholecystectomy with mild prominence of the common bile duct again noted. There are areas of soft tissue filling defect within the duct which are unchanged in appearance compared to the 2016 examination. This could represent small stones or sludge. 2. Small retrocardiac hiatal hernia. 3. Unremarkable bowel gas pattern with no inflammatory change or obstruction. 4. Small pericardial effusion. Cholangiopancreatography MRI 06/05/18 00:00 CONCLUSION: 1. Dilation of the common bile duct measuring up to 1.5 cm with 3 large stones in the common duct. The largest measures 1.3 cm. 2. The patient is post cholecystectomy. GI Procedure 06/06/18 00:00 CONCLUSION: Status post placement of an internal biliary stent. Discharge Plan - Discharge Disposition Patient Disposition: 01 Discharge Home - Discharge Condition Condition: Good - Discharge Order Discharge Orders: Discharge Order (Routine); Ordered 06/06/18 Ordered By: Manuel Lakhani - Discharge Details Anticipated Discharge Date: 06/06/18 - Physicians Team Primary Care Provider: Tom Mckeon Attending Provider: Manuel Lakhani Other Providers: Tommie Mclaughlin MD
--- NOTE | 2018-06-06 15:34 | ECG ---
Date Performed: 06/05/2018 Time Performed: 18:38:10 PTAGE: 58 years EKG: Sinus rhythm MARKED LEFT AXIS DEVIATION LOW QRS VOLTAGE IN PRECORDIAL LEADS PATTERN CONSISTENT WITH PULMONARY DIS EASE INCOMPLETE RIGHT BUNDLE BRANCH BLOCK Loss of R wave in leads V4-V6. With anterior T wave flatten ing, which is new since prior tracing. Can not rule out ischemia. Clinical correlation is recommended . ABNORMAL ECG PREVIOUS TRACING : 07/19/2017 07.46.54 DOCTOR: Thomas Pinon Interpretating Date/Time 06/06/2018 15:33:33
[2018-06-06 16:55] VITALS: BP 110/58; PULSE 64; TEMP 98.7
== END 2018-06-06 19:28 | disposition home or self-care (01) ==
LOC: NEPGCP 19:33 → NEDA 19:33 → NEPE 19:33 → NEPGCP 06-05 08:39
PROVIDERS: ADMIT Hospitalist; ATTEND Hospitalist
DX: Z80.49 Family history of malignant neoplasm of other genital organs; J84.10 Pulmonary fibrosis, unspecified; F31.9 Bipolar disorder, unspecified; Z88.5 Allergy status to narcotic agent; K52.9 Noninfective gastroenteritis and colitis, unspecified; K44.9 Diaphragmatic hernia without obstruction or gangrene; K80.50 Calculus of bile duct without cholangitis or cholecystitis without obstruction; K22.2 Esophageal obstruction; I26.99 Other pulmonary embolism without acute cor pulmonale; M54.30 Sciatica, unspecified side; M79.7 Fibromyalgia; Z87.891 Personal history of nicotine dependence; Z90.710 Acquired absence of both cervix and uterus; Z88.0 Allergy status to penicillin; I51.7 Cardiomegaly; J44.9 Chronic obstructive pulmonary disease, unspecified; I31.3 Pericardial effusion (noninflammatory); F25.9 Schizoaffective disorder, unspecified; I11.9 Hypertensive heart disease without heart failure; Z90.49 Acquired absence of other specified parts of digestive tract; Z79.899 Other long term (current) drug therapy